=== PATIENT | male | born 1935 | race Caucasian/White ===

== ENCOUNTER 2017-06-25 08:52 | Outpatient (CLI) | payer MEDICARE ==
--- NOTE | 2017-06-25 09:40 | RAD ---
TWO VIEWS OF THE CHEST: 06/25/17 COMPARISON: 05/03/17 HISTORY: Dyspnea. FINDINGS: Two views of the chest shows a normal sized cardiomediastinal silhouette. The pacemaker is unchanged in position. The patient is status post sternotomy. There is no evidence consolidation, mass or ple ural effusion. IMPRESSION: Cardiomegaly without evidence of acute cardiopulmonary disease. POS: [facility]
== END 2017-06-25 08:53 | disposition home or self-care (01) ==
LOC: RAD 08:52
PROVIDERS: ATTEND Internal Medicine Critical Care Medicine
DX: R06.00 Dyspnea, unspecified (principal); I51.7 Cardiomegaly
CPT/HCPCS: 71020

== ENCOUNTER 2019-05-12 17:49 | Emergency (ER) | payer MEDICARE ==
[2019-05-12 18:45] LABS: #Eosinphils 0.1 thou/uL (0.0-0.7); #Lymphocytes 0.6 thou/uL (1.20-3.40); #Monocytes 0.5 thou/uL (0.11-0.59); #Neutrophils 7.1 thou/uL (1.40-6.50); %Eosinophils 0.7 % (0.0-10.0); %Lymphocytes 6.8 % (21.0-51.0); %Monocytes 6.6 % (0.0-10.0); Hemoglobin 16.5 g/dL (14.0-18.0); Mean Corpuscular HGB CONC 33.9 g/dL (32.0-36.0); Mean Corpuscular Hemoglobin 34.2 pg (27.0-31.0); Platelet Count 89 thou/uL (130-400); RBC Distribution Width 12.3 % (11.5-14.5); Red Blood Cell (RBC) Count 4.83 mill/uL (4.70-6.10); White Blood Cell (WBC) Count 8.3 thou/uL (4.8-10.8)
[2019-05-12 19:01] LABS: Platelet Morphology Comment Appears Decreased; RBC Morphology Normal
[2019-05-12 19:04] LABS: ALT (SGPT) 16 U/L (8-55); AST (SGOT) 15 U/L (5-34); Albumin 4.1 g/dL (3.4-4.8); Alkaline Phosphatase 74 U/L (40-150); Anion Gap 13 mmol/L (10-20); BUN (Urea Nitrogen) 33 mg/dL (8.4-25.7); Bilirubin, Total 0.7 mg/dL (0.2-1.2); Calc. Creatinine Clearance 0 mL/min (70-130); Calcium 9.2 mg/dL (7.8-10.44); Carbon Dioxide 32 mmol/L (23-31); Chloride 100 mmol/L (98-107); Estimated GFR-MDRD 50; Globulin 1.9 g/dL (2.4-3.5); Glucose 152 mg/dL (83-110); Potassium 3.7 mmol/L (3.5-5.1); Sodium 141 mmol/L (136-145)
--- NOTE | 2019-05-14 22:28 | EKG ---
Test Reason : Blood Pressure : / mmHG Vent. Rate : 107 BPM Atrial Rate : 107 BPM P-R Int : 000 ms QRS Dur : 160 ms QT Int : 382 ms P-R-T Axes : 000 259 037 degrees QTc Int : 509 ms Electronic ventricular pacemaker with frequent Premature ventricular complexes Confirmed by INA MARCUS, PB Parmar ([id number]), department editor AVELINA IYER ([id number]) on 05/14/2019 10:28:07 PM Referred By: Confirmed By:PB BUCKLEY MD
== END 2019-05-12 20:18 ==
LOC: ERS 17:49
DX: I49.3 Ventricular premature depolarization (principal); E11.9 Type 2 diabetes mellitus without complications; I25.10 Atherosclerotic heart disease of native coronary artery without angina pectoris; E78.5 Hyperlipidemia, unspecified; I10 Essential (primary) hypertension; J44.9 Chronic obstructive pulmonary disease, unspecified; I48.91 Unspecified atrial fibrillation; F32.9 Major depressive disorder, single episode, unspecified; F17.210 Nicotine dependence, cigarettes, uncomplicated; Z79.82 Long term (current) use of aspirin
CPT/HCPCS: 36415; 80053; 84484; 85025; 93005; 94760

== ENCOUNTER 2019-07-18 13:29 | Outpatient (CLI) | payer MEDICARE ==
[~2019-07-18 13:29] MED LIST: Sodium Chloride 0.9% 15 ML NEB ONE
--- NOTE | 2019-07-18 18:21 | HP ---
HISTORY OF PRESENT ILLNESS: Mr. Adam Baker is a very pleasant 83-year-old gentleman, who presents to the Wound Center for evaluation of an ulceration of the left medial lower leg. The patient states that the wound was first noted approximately 2 months ago. He states that he is unsure as to how the wound began. He states that he has been receiving dressing changes with the assistance of Home Health. The patient resides at [facility]. PAST MEDICAL HISTORY: 1. Coronary artery disease. 2. Hypertension. 3. COPD. 4. Benign prostatic hypertrophy. 5. Congestive heart failure. 6. Atrial fibrillation. 7. Chronic kidney disease, stage 3. 8. Anemia. PAST SURGICAL HISTORY: 1. Coronary artery bypass grafting. 2. Redo coronary artery bypass grafting. 3. TURP. 4. Right carotid endarterectomy. 5. Pacemaker placement. 6. AICD placement. MEDICATIONS: 1. Hydralazine. 2. Digoxin. 3. Prednisone. 4. DuoNeb. 5. Tylenol No. 3. 6. Symbicort. 7. MiraLAX. 8. Furosemide. 9. Coreg. 10. Protonix. 11. Imdur. 12. Aspirin. 13. Dextromethorphan. 14. Milk of magnesia. 15. Folic acid. 16. Senna. 17. Spiriva. 18. Atorvastatin. 19. Terazosin. 20. Vitamin D. 21. Multivitamin. ALLERGIES: PENICILLIN. SOCIAL HISTORY: Social history is significant for tobacco use of 1/2 of a pack of cigarettes per day for approximately 70 years. The patient admits to the consumption of two beers per day also for approximately 70 years. FAMILY HISTORY: Family history is negative for diabetes mellitus or coronary artery disease. PHYSICAL EXAMINATION: VITAL SIGNS: Temperature 97.9, pulse 70, respirations 18, and blood pressure 126/74. Accu-Chek 172. GENERAL: An 83-year-old gentleman sitting on wheelchair in examination room, in no acute distress. HEENT: Normocephalic and atraumatic. NECK: No nuchal rigidity. CHEST: Clear to auscultation. CV: Regular rate and rhythm. ABDOMEN: Soft. EXTREMITIES: An ulceration of the left medial lower leg is present, which measures approximately 1.0 x 2.1 cm. Granulation tissue is present within the wound margins. No purulent drainage is associated with the wound. No erythema of the skin surrounding the wound is present. No maceration of the skin of the periwound is noted. A dorsalis pedis pulse or posterior tibial pulse is not palpable on the left. No significant edema of the left foot or lower leg is present on exam today. ASSESSMENT AND PLAN: 1. Ulceration of left medial lower leg as described above. The ulceration appears to have developed over a hematoma of the left medial lower leg. The healing of the ulceration appears to be complicated by arterial insufficiency. The patient states that he has undergone a percutaneous revascularization of the left lower extremity with stent placement on the left. No antibiotics will be prescribed today based upon the appearance of the wound. I will see Mr. Baker again in 3 weeks. Orders will be transmitted to Home Health for dressing changes of iodoform packing followed by Mepilex Border 3 times per week after cleansing and irrigation. The patient understands and is in agreement with the preceding treatment plan. 2. Coronary artery disease. 3. Hypertension. 4. Chronic obstructive pulmonary disease. 5. Benign prostatic hypertrophy. 6. Congestive heart failure. 7. Atrial fibrillation. 8. Chronic kidney disease, stage 3. 9. Anemia. Job ID: [id number]
== END 2019-07-18 13:30 | disposition home or self-care (01) ==
LOC: WCC 13:29
PROVIDERS: ATTEND Family Medicine
DX: L97.929 Non-pressure chronic ulcer of unspecified part of left lower leg with unspecified severity (principal); I25.10 Atherosclerotic heart disease of native coronary artery without angina pectoris; N40.0 Benign prostatic hyperplasia without lower urinary tract symptoms; I48.91 Unspecified atrial fibrillation; I13.0 Hypertensive heart and chronic kidney disease with heart failure and stage 1 through stage 4 chronic kidney disease, or unspecified chronic kidney disease; I50.9 Heart failure, unspecified; N18.3 Chronic kidney disease, stage 3 (moderate); D64.9 Anemia, unspecified
CPT/HCPCS: 36416; A4218

== ENCOUNTER 2019-08-08 14:29 | Outpatient (CLI) | payer MEDICARE ==
--- NOTE | 2019-08-08 15:39 | PRG ---
DATE OF SERVICE: 08/08/2019 HISTORY: Mr. Adam Baker is a very pleasant 84-year-old gentleman, who presents to the Wound Center for evaluation of an ulceration of the left medial lower leg. The patient previously stated that the wound was first noted approximately 2 months prior to his initial presentation to the Wound Center. He stated that he was unsure as to how the wound began. The patient stated that he had been receiving dressing changes with the assistance of Home Health. The patient continues to reside at [facility]. PHYSICAL EXAMINATION: VITAL SIGNS: Temperature 98.2, pulse 75, respirations 19, and blood pressure 133/67. Accu-Chek 163. EXTREMITIES: An ulceration of the left medial lower leg is present, which measures approximately 2.1 x 1.2 cm. A new ulceration is present over the left lateral lower leg, which measures approximately 0.8 x 0.7 cm. Granulation tissue is present within the margins of each wound. No purulent drainage is associated with either wound. No erythema of the skin surrounding either wound is present. No maceration of the skin of the periwound of either wound is noted. A dorsalis pedis pulse or posterior tibial pulse is not palpable on the left. No significant edema of the left foot or lower leg is present on exam today. ASSESSMENT AND PLAN: 1. Ulcerations of left lower leg as described above. The healing of both ulcerations appears to be complicated by arterial insufficiency. The patient states that he has undergone percutaneous revascularization of the left lower extremity with stent placement on the left. Orders will be transmitted to Home Health for dressing changes of Aquacel Ag, followed by Mepilex Border three times per week after cleansing and irrigation. I will see Mr. Baker again in 1 week. 2. Coronary artery disease. 3. Hypertension. 4. Chronic obstructive pulmonary disease. 5. Benign prostatic hypertrophy. 6. Congestive heart failure. 7. Atrial fibrillation. 8. Chronic kidney disease, stage 3. 9. Anemia. Job ID: [id number]
[2019-08-08] MEDS ORDERED: Sodium Chloride 0.9% 15 ML NEB ONE (16:56)
== END 2019-08-08 14:30 | disposition home or self-care (01) ==
LOC: WCC 14:29
PROVIDERS: ATTEND Family Medicine
DX: L97.929 Non-pressure chronic ulcer of unspecified part of left lower leg with unspecified severity (principal); I25.10 Atherosclerotic heart disease of native coronary artery without angina pectoris; I13.10 Hypertensive heart and chronic kidney disease without heart failure, with stage 1 through stage 4 chronic kidney disease, or unspecified chronic kidney disease; J44.9 Chronic obstructive pulmonary disease, unspecified; N40.0 Benign prostatic hyperplasia without lower urinary tract symptoms; I50.9 Heart failure, unspecified; I48.91 Unspecified atrial fibrillation; N18.3 Chronic kidney disease, stage 3 (moderate); D63.1 Anemia in chronic kidney disease
CPT/HCPCS: 36416; A4218

== ENCOUNTER 2019-08-15 15:42 | Outpatient (CLI) | payer MEDICARE ==
--- NOTE | 2019-08-16 09:03 | PRG ---
DATE OF SERVICE: 08/15/2019 SUBJECTIVE: Mr. Adam Baker is a very pleasant 84-year-old gentleman, who presents to the wound center for evaluation of an ulceration of the left medial lower leg. The patient previously stated that the wound was first noted approximately 2 months prior to his initial presentation to the wound center. He stated that he was unsure as to how the wound began. The patient stated that he had been receiving dressing changes with the assistance of Home Health. The patient resides at [facility]. At the time of the patient's last visit, a new ulceration over the left lateral lower leg was noted. OBJECTIVE: VITAL SIGNS: Pulse 70, respirations 21, blood pressure 145/67. Accu-Chek 197. EXTREMITIES: An ulceration over the left medial lower leg is present which measures approximately 1.9 x 0.9 cm. The dimensions of the wound at the time of the patient's last visit were approximately 2.1 x 1.2 cm. An ulceration over the left lateral lower leg is present which measures approximately 0.5 x 0.6 cm. The dimensions of this ulceration at the time of the patient's last visit were approximately 0.8 x 0.7 cm. Granulation tissue is present within the margins of each wound. No purulent drainage is associated with either wound. No erythema of the skin surrounding either wound is present. No maceration of the skin of the periwound of either wound is noted. A dorsalis pedis pulse or posterior tibial pulse is not palpable on the left. No significant edema of the left foot or lower leg is appreciated on exam today. ASSESSMENT AND PLAN: 1. Ulcerations of left lower leg as described above. The healing of both ulcerations appears to be complicated by arterial insufficiency. The patient stated that he has undergone percutaneous revascularization of the left lower extremity with stent placement on the left. Arrangements will be made for a vascular evaluation. The patient states that he wishes to discuss referral for vascular evaluation with his engine test cell technician, Dr. Banks. Orders will be transmitted to Home Health for dressing changes of Aquacel Ag or Silvercel followed by Mepilex Border 3 times per week after cleansing and irrigation. I will see Mr. Baker again in 1 week. 2. Coronary artery disease. 3. Hypertension. 4. Chronic obstructive pulmonary disease. 5. Benign prostatic hypertrophy. 6. Congestive heart failure. 7. Atrial fibrillation. 8. Chronic kidney disease, stage 3. 9. Anemia. Job ID: [id number]
== END 2019-08-15 15:43 | disposition home or self-care (01) ==
LOC: WCC 15:42
PROVIDERS: ATTEND Family Medicine
DX: L97.929 Non-pressure chronic ulcer of unspecified part of left lower leg with unspecified severity (principal); I77.1 Stricture of artery; J44.9 Chronic obstructive pulmonary disease, unspecified; I25.10 Atherosclerotic heart disease of native coronary artery without angina pectoris; N40.0 Benign prostatic hyperplasia without lower urinary tract symptoms; I13.0 Hypertensive heart and chronic kidney disease with heart failure and stage 1 through stage 4 chronic kidney disease, or unspecified chronic kidney disease; I50.9 Heart failure, unspecified; N18.3 Chronic kidney disease, stage 3 (moderate); D63.1 Anemia in chronic kidney disease; I48.91 Unspecified atrial fibrillation
CPT/HCPCS: 36416

== ENCOUNTER 2019-08-22 13:52 | Outpatient (CLI) | payer MEDICARE ==
--- NOTE | 2019-08-22 15:57 | PRG ---
DATE OF SERVICE: 08/22/2019 HISTORY: Mr. Adam Baker is a very pleasant 84-year-old gentleman, who presents to the Wound Center for evaluation of an ulceration of the left medial lower leg. Previously, the patient stated that the wound was first noted approximately 2 months prior to his initial presentation to the Wound Center. The patient stated that he was unsure as to how the wound began. The patient stated that he had been receiving dressing changes with the assistance of Home Health. The patient resides at [facility] at the time of the patient's visit on 08/08/2019, a new ulceration over the left lateral lower leg was noted. PHYSICAL EXAMINATION: VITAL SIGNS: Temperature 97.6, pulse 70, respirations 20, blood pressure 184/85. Accu-Chek 97. EXTREMITIES: An ulceration over the left medial lower leg is present, which measures approximately 1.7 x 0.6 cm. The dimensions of the wound at the time of the patient's last visit were approximately 1.9 x 0.9 cm. An ulceration over the left lateral lower leg is present, which measures approximately 0.5 x 0.5 cm. The dimensions of the wound at the time of the patient's last visit were approximately 0.5 x 0.6 cm. Granulation tissue was present within the margins of each wound. No purulent drainage is associated with either wound. No erythema of the skin surrounding either wound is present. No maceration of the skin of the periwound of either wound is noted. No significant edema of the left foot or lower leg is appreciated on exam today. ASSESSMENT AND PLAN: 1. Ulcerations of left lower leg as described above. The healing of both ulcerations appear to be complicated by arterial insufficiency. The patient stated that he has undergone percutaneous revascularization of the left lower extremity with stent placement on the left. Arrangements will be made for a vascular evaluation. The patient stated that he wished to discuss referral for vascular evaluation with his dental assistant, Dr. Banks. The patient was recently seen by Dr. Banks. According to the patient, Mr. Baker has an appointment for an ultrasound at [facility]. The patient's nurse at [facility] has been contacted to ensure that the patient keeps his appointment at [facility]. Orders will be transmitted to Home Health for dressing changes of Aquacel Ag or Silvercel followed by Mepilex Border 3 times per week after cleansing and irrigation. I have asked the patient to schedule a followup appointment in the Wound Center after evaluation and any necessary treatment for arterial insufficiency at [facility] is complete. The patient understands and is in agreement with the preceding treatment plan. 2. Coronary artery disease. 3. Hypertension. 4. Chronic obstructive pulmonary disease. 5. Benign prostatic hypertrophy. 6. Congestive heart failure. 7. Atrial fibrillation. 8. Chronic kidney disease stage 3. 9. Anemia. Job ID: [id number]
[2019-08-22] MEDS ORDERED: Sodium Chloride 0.9% 15 ML NEB ONE (16:33)
== END 2019-08-22 13:53 | disposition home or self-care (01) ==
LOC: WCC 13:52
PROVIDERS: ATTEND Family Medicine
DX: L97.929 Non-pressure chronic ulcer of unspecified part of left lower leg with unspecified severity (principal); I13.0 Hypertensive heart and chronic kidney disease with heart failure and stage 1 through stage 4 chronic kidney disease, or unspecified chronic kidney disease; N18.3 Chronic kidney disease, stage 3 (moderate); N40.0 Benign prostatic hyperplasia without lower urinary tract symptoms; J44.9 Chronic obstructive pulmonary disease, unspecified; D63.1 Anemia in chronic kidney disease; I50.9 Heart failure, unspecified; I48.91 Unspecified atrial fibrillation; I25.10 Atherosclerotic heart disease of native coronary artery without angina pectoris
CPT/HCPCS: A4218

== ENCOUNTER 2019-08-24 14:38 | Outpatient (CLI) | payer MEDICARE ==
--- NOTE | 2019-08-24 16:13 | ULT ---
US Arterial Doppler Lower Ext History: Peripheral vascular disease Comparison: None. Findings: Real-time grayscale, color, and spectral analysis of the bilateral lower extremity arterial system was performed. Monophasic waveforms throughout the lower extremities bilaterally. Severe atherosclerotic plaque thro ughout both lower extremities. There is complete occlusion of the mid right femoral artery as well as the mid and distal left femoral artery. Trickle of flow to the feet bilaterally with spectral broa dening and parvis tardis waveforms of the trifurcations. 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 Conventional angiogram and possible intervention recommended.
== END 2019-08-24 14:39 | disposition home or self-care (01) ==
LOC: ULT 14:38
PROVIDERS: ATTEND Internal Medicine Cardiovascular Disease
DX: I50.22 Chronic systolic (congestive) heart failure (principal); I73.9 Peripheral vascular disease, unspecified; I77.89 Other specified disorders of arteries and arterioles
CPT/HCPCS: 93923

== ENCOUNTER 2019-09-07 18:31 | Inpatient (IN) | payer MEDICARE, SELFPAY ==
[2019-09-07] MEDS ORDERED: Clindamycin/D5W 900 mg/50 ml Premix Bag ONE (18:50)
[2019-09-07 19:20] LABS: #Basophils 0.1 thou/uL (0.0-0.2); #Lymphocytes 0.3 thou/uL (1.20-3.40); #Monocytes 0.7 thou/uL (0.11-0.59); #Neutrophils 15.3 thou/uL (1.40-6.50); %Basophils 0.7 % (0.0-1.0); %Eosinophils 0.1 % (0.0-10.0); %Lymphocytes 1.8 % (21.0-51.0); %Monocytes 4.4 % (0.0-10.0); %Neutrophils 92.9 % (42.0-75.0); Hemoglobin 16.3 g/dL (14.0-18.0); Mean Corpuscular HGB CONC 33.1 g/dL (32.0-36.0); Mean Corpuscular Hemoglobin 33.5 pg (27.0-31.0); Mean Platelet Volume 8.2 fL (7.4-10.4); Platelet Count 78 thou/uL (130-400); RBC Distribution Width 12.5 % (11.5-14.5); Red Blood Cell (RBC) Count 4.88 mill/uL (4.70-6.10); White Blood Cell (WBC) Count 16.5 thou/uL (4.8-10.8)
[2019-09-07] MEDS ORDERED: HYDROcodone/Acetaminophen 10/325 mg Tablet ONE (19:33)
[2019-09-07] MEDS ORDERED: Acetaminophen 500 MG TAB ONE (19:33)
[2019-09-07 19:36] LABS: ALT (SGPT) 22 U/L (8-55); AST (SGOT) 34 U/L (5-34); Albumin 3.8 g/dL (3.4-4.8); Alkaline Phosphatase 72 U/L (40-110); Anion Gap 15 mmol/L (10-20); BUN (Urea Nitrogen) 34 mg/dL (8.4-25.7); Bilirubin, Total 1.6 mg/dL (0.2-1.2); Calc. Creatinine Clearance 0 mL/min (70-130); Calcium 9.3 mg/dL (7.8-10.44); Carbon Dioxide 32 mmol/L (23-31); Chloride 96 mmol/L (98-107); Estimated GFR-MDRD 45; Globulin 2.6 g/dL (2.4-3.5); Glucose 113 mg/dL (83-110); Potassium 3.8 mmol/L (3.5-5.1); Protein, Total 6.4 g/dL (5.8-8.1); Sodium 139 mmol/L (136-145)
--- NOTE | 2019-09-07 19:36 | PDOC.HHP ---
Hospitalist HPI - History of Present Illness R leg swelling/redness History of Present Illness: 84 year old male with DM2, atrial fibrillation, pacemaker, [id number], benign prostatic hypertrophy, hyperlipidemia, hypertension, COPD who presents to ED for RLE swelling and erythema, began a week ago, normally treated by home health , normally LLE is leg with ulcers but 1 week ago developed RLE ulcer and erythema/edema, no fever/chills, patient is a resident of [facility]. Per ED report blood pressure initially with EMS was 90 systolic, improved to 142 then 160s. In ED, blood cultures drawn, recieved 500cc NS, US duplex venous ordered, lactic acid 1.4, WBC 16, patient received clindamycin, [facility] hospitalist consulted for admission I discussed with Dr Reyes. Noted history of PCN allergy and sacral decubitus ulcer. Patient chair bound x 2 years per niece at bedside, "passes out" if walks more than 3-4 feet she says, has chronic hypoxia on 2L by nasal canula, no SOB, has chronic orthopnea, sees Dr Banks and has pacemaker with recent battery change. Hospitalist ROS - Review of Systems Constitutional: denies: fever, chills, sweats, weakness, malaise, other Eyes: denies: pain, vision change, conjunctivae inflammation, eyelid inflammation, redness, other ENT: denies: ear pain, ear discharge, nose pain, nose discharge, nose congestion , mouth pain, mouth swelling, throat pain, throat swelling, other Respiratory: denies: cough, dry, shortness of breath, hemoptysis, SOB with excertion, pleuritic pain, sputum, wheezing, other Cardiovascular: denies: chest pain, palpitations, orthopnea, paroxysmal noc. dyspnea, edema, light headedness, other Gastrointestinal: denies: nausea, vomiting, abdominal pain, diarrhea, constipation, melena, hematochezia, other Genitourinary: denies: dysuria, frequency, incontinence, hematuria, retention, other Musculoskeletal: denies: neck pain, shoulder pain, arm pain, back pain, hand pain, leg pain, foot pain, other Skin: denies: rash, lesions, joyce, bruising, other Neurological: denies: weakness, numbness, incoordination, change in speech, confusion, seizures, other Hospitalist History - Past Medical History Other Medical History: DM TYPE 2, cardiac history, Treated with a pacemaker, Past medical history includes cardiac history, coronary artery disease, Past medical history includes genitourinary history, benign prostatic hypertrophy, Past medical history includes history of hyperlipidemia, Past medical history includes history of hypertension, Past medical history includes pulmonary disease, chronic obstructive pulmonary disease. AFIB. - Past Surgical History Other Surgical History: CAROTID THROMBOENDARTERECTOMY, Surgical history of coronary artery bypass graft surgery X 2, four vessels, Surgical history of prostatectomy, PM. - Family History Family History: reports: no pertinent history - Social History Other Social History: Lives, Lives at [facility] living at [facility], Patient currently uses tobacco, Patient smokes cigarettes, Tobacco history notes: 0.5 PACK PER DAY, Patient drinks every day, less than 5 drinks per day, Patient denies drug use. - Exam General Appearance: NAD, awake alert Eye: PERRL, anicteric sclera ENT: normocephalic atraumatic, no oropharyngeal lesions, moist mucosa Neck: supple, symmetric, no JVD, no thyromegaly, no lymphadenopathy, no carotid bruit Heart: RRR, no murmur, no gallops, no rubs, normal peripheral pulses Respiratory: CTAB, no wheezes, no rales, no ronchi, normal chest expansion, no tachypnea, normal percussion Gastrointestinal: soft, non-tender, non-distended, normal bowel sounds, no palpable masses, no hepatomegaly, no splenomegaly, no bruit Extremities: no cyanosis, no clubbing, 2+ LE edema Skin - other findings: R lower extremity edema to patten, sacral stage 1-2 ulcer ~ 2cm, pannus yeast Neurological: cranial nerve grossly intact, normal sensation to touch, no weakness, no focal deficits, no new deficit Musculoskeletal: normal tone, normal strength, no muscle wasting Psychiatric: normal affect, normal behavior, A&O x 3 Hospitalist Results - Labs Result Diagrams: 09/07/19 18:44 09/07/19 18:44 Lab results: WBC 16.5 thou/uL (4.8-10.8) H 09/07/19 18:44 Hgb 16.3 g/dL (14.0-18.0) 09/07/19 18:44 Hct 49.4 % (42.0-52.0) 09/07/19 18:44 MCV 101.0 fL (78.0-98.0) H 09/07/19 18:44 Plt Count 78 thou/uL (130-400) L 09/07/19 18:44 Neutrophils % 92.9 % (42.0-75.0) H 09/07/19 18:44 Lactic Acid 1.4 mmol/L (0.5-2.2) 09/07/19 18:44 reviewed, WBC 16 Additional comment: BP: 164/71 Pulse: 71 Resp: 20 Temp: 99.1 (Oral) Pain: 0 O2 sat: 95 on (Room Air) Time: 09/07/2019 18:36. Hospitalist H&P A/P - Plan Plan: 84 year old male with DM2, atrial fibrillation, pacemaker, NLXCb1m, benign prostatic hypertrophy, hyperlipidemia, hypertension, COPD who presents to ED for RLE swelling and erythema. # RLE cellulitis - admit to med/surg - continue clindamycin - follow blood cultures # sepsis secondary to cellulitis - WBC and low BP per EMS report, now normalized , lactic acid normal - treatment as above # chronic hypoxic respiratory failure - on 2L at home and 2L here, will order echo and consult cardiology for optimization and continue COPD medications # type 2 DM - mild sliding scale ordered ACHS # history of atrial fibrillation and pacemaker - consult cardiology # sacral decubitus ulcer - consult wound care service for inpatient assistance # candidal infection of pannus - prescribe nystatin # thrombocytopenia - platelets 78 # sacral decubitus - likely secondary to immobility, wound care nurse consult # elevated bilirubin - 1.6 in ED, appears to have fluctuating baseline but always <2.0, repeat LFT in AM, do not suspect acute GI issues # CKD III - Cr 1.5 in ED, baseline appears 1.5-2.0, trend daily # CAD with h/o CABG - noted, continue home meds once med rec complete # BPH with h/o prostatectomy - noted, continue home meds once med rec complete # debility - basically lives in a recliner, "passes out" if walks more than a few steps, will request cardiology evaluation given orthopnea and cardiac history and will request Pt/OT and case management evaluation # disposition - SNF/rehab vs return to assisted living
[2019-09-07] MEDS ORDERED: Ondansetron PF 4 MG/2 ML Vial IVP PRN (20:31)
[2019-09-07] MEDS ORDERED: Promethazine HCl 12.5 MG in Sodium Chloride 0.9% 50 ML IVPB PRN (20:31)
[2019-09-07] MEDS ORDERED: Morphine 2 MG/ML SYRINGE SLOW IVP PRN (20:31)
[2019-09-07] MEDS ORDERED: Bisacodyl 5 MG TAB PO PRN (20:32)
[2019-09-07] MEDS ORDERED: Bisacodyl 10 MG SUPP PR PRN (20:32)
[2019-09-07] MEDS ORDERED: HYDROcodone/Acetaminophen 5/325 mg Tablet PO PRN (20:32)
[2019-09-07] MEDS ORDERED: Acetaminophen 325 MG TAB PO PRN (20:32)
[2019-09-07] MEDS ORDERED: Dextrose 50% Abboject 50 ML SYRINGE SLOW IVP PRN (20:34)
[2019-09-07] MEDS ORDERED: Dextrose 5% in Water 1,000 ML IV PRN (20:34)
--- NOTE | 2019-09-07 21:50 | ULT ---
EXAM: Bilateral lower extremity venous Doppler PROVIDED CLINICAL HISTORY: Bilateral lower extremity edema FINDINGS: Grayscale and color Doppler sonography with spectral analysis was performed of the common femoral, fe moral, popliteal, posterior tibial, greater saphenous and profunda femoral veins bilaterally. The evaluated venous structures demonstrate a normal sonographic appearance. IMPRESSION: No sonographic evidence for lower extremity deep venous thrombosis.
[2019-09-07] MEDS: Heparin 5,000 UNITS/ML VIAL SC SCH (22:18)
[2019-09-07] MEDS: Senokot S 8.6-50 MG TAB PO SCH (22:20)
[2019-09-07] MEDS: Nystatin Powder 15 GM BOT TOP SCH (22:31)
[2019-09-07 22:58] VITALS: BMI 23.8
[2019-09-08] MEDS: Clindamycin/D5W 600 MG in Premix Bag 1 BAG IVPB SCH ×3 (05:39→21:25)
[2019-09-08 06:18] LABS: #Lymphocytes 0.5 thou/uL (1.20-3.40); #Monocytes 0.7 thou/uL (0.11-0.59); #Neutrophils 10.2 thou/uL (1.40-6.50); %Eosinophils 0.3 % (0.0-10.0); %Monocytes 6.3 % (0.0-10.0); %Neutrophils 89.4 % (42.0-75.0); Hemoglobin 15.6 g/dL (14.0-18.0); Mean Corpuscular HGB CONC 31.9 g/dL (32.0-36.0); Mean Corpuscular Hemoglobin 32.6 pg (27.0-31.0); Mean Platelet Volume 8.3 fL (7.4-10.4); Platelet Count 70 thou/uL (130-400); RBC Distribution Width 12.5 % (11.5-14.5); Red Blood Cell (RBC) Count 4.79 mill/uL (4.70-6.10); White Blood Cell (WBC) Count 11.5 thou/uL (4.8-10.8)
[2019-09-08] MEDS ORDERED: Mometasone/Formoterol 120 PUFF INHALER INH SCH ×2 (06:30→09:30)
[2019-09-08 06:44] LABS: Anion Gap 15 mmol/L (10-20); BUN (Urea Nitrogen) 35 mg/dL (8.4-25.7); Calc. Creatinine Clearance 41 mL/min (70-130); Calcium 8.6 mg/dL (7.8-10.44); Carbon Dioxide 26 mmol/L (23-31); Chloride 101 mmol/L (98-107); Estimated GFR-MDRD 48; Glucose 109 mg/dL (83-110); Magnesium 2.3 mg/dL (1.6-2.6); Potassium 3.3 mmol/L (3.5-5.1); Sodium 139 mmol/L (136-145)
[2019-09-08] MEDS: Budesonide 0.25 MG/2 ML NEB INH SCH ×2 (06:50→19:00)
[2019-09-08] MEDS: predniSONE 5 MG TAB PO SCH (07:48)
[2019-09-08] MEDS: Heparin 5,000 UNITS/ML VIAL SC SCH ×3 (07:48→22:52)
[2019-09-08] MEDS: Senokot S 8.6-50 MG TAB PO SCH ×2 (07:49→21:25)
[2019-09-08] MEDS: Nystatin Powder 15 GM BOT TOP SCH ×2 (07:49→21:27)
[2019-09-08] MEDS ORDERED: Potassium Chloride 20 MEQ TAB PO SCH (08:15)
[2019-09-08] MEDS ORDERED: Aspirin 81 mg Enteric Coated Tablet PO SCH (09:00)
--- NOTE | 2019-09-08 09:13 | PDOC.HOSPP ---
- Subjective Subjective: Doing ok. Says the redness in his leg has been present for a month. When asked what changed that he decided to come here he said the NEUROLOGY HOSPITALIST at the [place] decided that. He does report that he has had increased pain during that time. He says his breathing is not good, but is at his baseline. He does continue to smoke at least a 1/2 PPD. He is willing to have a low dose nicotine patch. - Objective Vital Signs & Weight: Vital Signs (12 hours) Temp Pulse Resp BP Pulse Ox 09/08/19 08:00 100 09/08/19 07:46 98.4 F 71 16 147/82 H 100 09/08/19 06:50 68 16 100 09/08/19 04:11 100 09/08/19 04:07 69 19 100 09/08/19 03:09 97.9 F 70 18 148/80 H 99 09/07/19 23:41 98.1 F 75 16 145/80 H 98 Weight Weight 161 lb I&O: 09/07/19 09/08/19 09/09/19 06:59 06:59 06:59 Intake Total 290 Output Total 200 Balance 90 Result Diagrams: 09/08/19 05:51 09/08/19 05:51 Additional Labs: Accuchecks 09/08/19 09/07/19 05:51 23:33 POC Glucose 108 109 Hospitalist ROS - Medication Medications: Active Medications Generic Name Dose Route Start Last Admin Trade Name Freq PRN Reason Stop Dose Admin Albuterol/Ipratropium 3 ml 09/07/19 20:44 09/08/19 04:07 Duoneb NEB 3 ml Q6H PRN Administration SOB &/or Wheezing Aspirin 81 mg 09/08/19 09:00 09/08/19 07:48 Ecotrin PO 81 mg DAILY [place] Administration Budesonide 0.25 mg 09/08/19 06:30 09/08/19 06:50 Pulmicort Neb Solution INH 0.25 mg BID-RT [place] Administration Heparin Sodium (Porcine) 5,000 units 09/07/19 21:00 09/08/19 07:48 Heparin SC 5,000 units TID [place] Administration Clindamycin Phosphate/Dextrose 50 mls @ 100 mls/hr 09/08/19 06:00 09/08/19 05 :39 600 mg/ Device IVPB 50 mls Q8HR [place] Administration Mometasone Furoate/Formoterol Fumar 1 puff 09/08/19 06:30 09/08/19 06:52 Dulera 200 Mcg/5 Mcg Inhaler INH 1 puff BID-RT [place] Administration Nystatin 1 gm 09/07/19 21:00 09/08/19 07:49 Mycostatin Powder TOP 1 gm BID [place] Administration Pantoprazole Sodium 40 mg 09/08/19 09:00 09/08/19 07:48 Protonix PO 40 mg DAILY [place] Administration Prednisone 10 mg 09/08/19 08:00 09/08/19 07:48 Prednisone PO 10 mg QAM-WM [place] Administration Senna/Docusate Sodium 1 tab 09/07/19 21:00 09/08/19 07:49 Senokot S PO 1 tab BID [place] Administration - Exam General Appearance: NAD, awake alert ENT - other findings: Nasal canula oxygen. Heart: RRR, no murmur Respiratory: rales (mild, scattered.) Respiratory - other findings: Diminished. Gastrointestinal: soft, non-tender, non-distended, normal bowel sounds, no palpable masses, no hepatomegaly, no splenomegaly, no bruit Extremities - other findings: Right calf erythema, TTP. Superficially denuded areas (see WCT pics) Musculoskeletal: generalized weakness Psychiatric: normal affect, normal behavior, A&O x 3 Hosp A/P (1) Cellulitis of right leg Code(s): L03.115 - CELLULITIS OF RIGHT LOWER LIMB Status: Acute (2) Atrial fibrillation Code(s): I48.91 - UNSPECIFIED ATRIAL FIBRILLATION Status: Chronic Qualifiers: Atrial fibrillation type: persistent (3) BPH (benign prostatic hyperplasia) Code(s): N40.0 - BENIGN PROSTATIC HYPERPLASIA WITHOUT LOWER URINRY TRACT SYMP Status: Chronic (4) CAD (coronary artery disease) Code(s): I25.10 - ATHSCL HEART DISEASE OF [place] CORONARY ARTERY W/O ANG PCTRS Status: Chronic (5) CKD (chronic kidney disease), stage III Status: Chronic (6) COPD (chronic obstructive pulmonary disease) Status: Chronic (7) Physical deconditioning Code(s): R53.81 - OTHER [place] Status: Chronic (8) PVD (peripheral vascular disease) Code(s): I73.9 - PERIPHERAL VASCULAR DISEASE, UNSPECIFIED Status: Acute (9) Open wound of right lower leg Code(s): S81.801A - UNSPECIFIED OPEN WOUND, RIGHT LOWER LEG, INITIAL ENCOUNTER Status: Acute - Plan Doing ok. Feels like his breathing is at baseline, but needs his usual daily meds. Resume home meds. Continue IV clinda for cellulitis. Will likely need to convert to po Keflex when improving. Continue WCT for topical wound care. Nicotine patch.
[2019-09-08] MEDS ORDERED: PROVENTIL INHALER 6.7 G (200 INHALATIONS) INH PRN (09:15)
[2019-09-08] MEDS ORDERED: Finasteride 5 MG TAB PO SCH (09:30)
[2019-09-08] MEDS ORDERED: Carvedilol 6.25 MG TAB PO SCH (09:30)
[2019-09-08] MEDS ORDERED: hydrALAZINE 25 MG TAB PO SCH (09:30)
[2019-09-08] MEDS ORDERED: Budesonide 0.25 MG/2 ML NEB INH SCH (09:30)
[2019-09-08] MEDS ORDERED: Furosemide 20 MG TAB PO SCH (09:30)
[2019-09-08] MEDS ORDERED: Ipratropium Bromide 2.5 ml Neb NEB PRN (09:42)
[2019-09-08] MEDS: Nicotine 7 MG PATCH TD SCH (10:31)
[2019-09-08] MEDS: hydrALAZINE 25 MG TAB PO SCH ×2 (15:46→21:26)
[2019-09-08] MEDS: Aspirin 81 mg Enteric Coated Tablet PO SCH (15:47)
[2019-09-08] MEDS: Carvedilol 6.25 MG TAB PO SCH (17:13)
[2019-09-08] MEDS ORDERED: Communication Order-Pharmacy FS SCH (18:15)
[2019-09-08] MEDS: Mometasone/Formoterol 120 PUFF INHALER INH SCH (19:01)
--- NOTE | 2019-09-08 19:14 | CON ---
DATE OF CONSULTATION: 09/08/2019 PRIMARY CREATIVE TECHNOLOGIST: Kevin Banks MD REASON FOR CONSULTATION: Peripheral vascular disease and nonhealing ulcers. HISTORY OF PRESENT ILLNESS: Mr. Baker is a very pleasant 84-year-old white gentleman, who comes to the hospital for lower extremity pain and nonhealing ulcers. He was evaluated by Dr. Banks as an outpatient and was having nonhealing ulcers and claudication. An arterial ultrasound of the lower extremities was performed that showed severe bilateral PVD, likely occluded superficial femoral arteries. He was scheduled to see either Dr. Matias or myself for consideration of an AFRO. He has not seen us for this, but he is in the hospital now for the same reason. Currently, he denies any chest pain, tightness, pressure, or shortness of breath and is chronic from with an ischemic cardiomyopathy and severely reduced EF. He otherwise denies any other issues. PAST MEDICAL HISTORY: 1. Type 2 diabetes. 2. Coronary artery disease. 3. BPH. 4. Hyperlipidemia. 5. Hypertension. 6. COPD. 7. History of atrial fibrillation. 8. Ischemic cardiomyopathy with severely reduced EF. 9. Peripheral vascular disease. SURGICAL HISTORY: 1. Carotid endarterectomy. 2. Coronary artery bypass grafting x2. 3. Prostatectomy. 4. Pacemaker placement/AICD. FAMILY HISTORY: Noncontributory. SOCIAL HISTORY: [facility] resident. Continues to use tobacco about half pack a day. Drinks daily. No drug use. REVIEW OF SYSTEMS: A 12-point review of systems was done and was all negative unless stated in the history of present illness. PHYSICAL EXAMINATION: VITAL SIGNS: Temperature 98.5, pulse 71, respiratory rate 16, saturating 100% on room air, blood pressure 173/87. GENERAL: Awake, alert, oriented x3, in no distress. HEENT: Normocephalic, atraumatic. NECK: Supple. LUNGS: Clear. Lungs have reduced breath sounds bilaterally. CARDIOVASCULAR: S1 and S2. No S3 or S4. No murmurs. There is a grade 3/6 systolic murmur at the right upper sternal border and second holosystolic murmur at the apex, 3/6. ABDOMEN: Soft. Positive bowel sounds. EXTREMITIES: Right lower extremity is wrapped with cellulitis and one ulcer. Left lower extremity has several ulcers that are painful and nonhealing. LABORATORY DATA: Laboratory work was reviewed. White count of 16, down to 11; hemoglobin of 16, down to 15; hematocrit 48; and platelet count of 70. Chemistry with a BUN of 35, creatinine 1.42, which is close to his baseline GFR 48, potassium was 3.3. BNP was 366. DIAGNOSTIC STUDIES: Lower extremity venous ultrasound was unremarkable. No DVTs. ASSESSMENT: 1. Nonhealing ulcers. 2. Peripheral vascular disease and claudication. 3. Severely reduced left ventricular systolic function with most recent echocardiogram in 2017 with an ejection fraction of 30% to 35%. 4. Ischemic cardiomyopathy. 5. Status post coronary artery bypass graft. 6. Lower extremity cellulitis. PLAN: 1. We will plan on doing AFRO. We spoke over the risks and benefits of the procedure and he agrees to proceed. We will plan on doing this tomorrow. He is able to lay flat at this time. He is pretty much at his normal euvolemic state. 2. We will plan on doing a right leg access for possible left leg intervention. He states the left leg is the one is giving him most problem. My expectation is that he will have severe disease and he will require some sort of surgical intervention to try to open up his arteries. However, we will find out tomorrow with angiography. 3. If stents were to be used bare metal stent and peripheral stents will be used because of his low platelet count. 4. Disposition: N.p.o. post midnight. 5. AFRO to be done tomorrow. 6. Very gentle hydration overnight. 7. Further recommendations per results of peripheral angiography. Thank you for letting us participate in the care of your patient. We will follow. Job ID: [id number]
[2019-09-08] MEDS: Terazosin HCl 1 MG CAP PO SCH (21:25)
[2019-09-08] MEDS: Furosemide 40 MG TAB PO SCH (21:26)
[2019-09-09] MEDS ORDERED: Sodium Chloride 0.9% 250 ML IV SCH ×2 (00:01→11:15)
[2019-09-09] MEDS: hydrALAZINE 20 MG/ML VIAL SLOW IVP PRN (00:11)
[2019-09-09 05:33] LABS: #Eosinphils 0.1 thou/uL (0.0-0.7); #Lymphocytes 0.5 thou/uL (1.20-3.40); #Monocytes 0.5 thou/uL (0.11-0.59); #Neutrophils 6.5 thou/uL (1.40-6.50); %Basophils 0.3 % (0.0-1.0); %Eosinophils 0.8 % (0.0-10.0); %Lymphocytes 6.3 % (21.0-51.0); %Monocytes 6.3 % (0.0-10.0); %Neutrophils 86.3 % (42.0-75.0); Hemoglobin 15.9 g/dL (14.0-18.0); Mean Corpuscular HGB CONC 32.7 g/dL (32.0-36.0); Mean Corpuscular Hemoglobin 33.1 pg (27.0-31.0); Mean Platelet Volume 8.3 fL (7.4-10.4); Platelet Count 89 thou/uL (130-400); RBC Distribution Width 12.4 % (11.5-14.5); Red Blood Cell (RBC) Count 4.81 mill/uL (4.70-6.10); White Blood Cell (WBC) Count 7.5 thou/uL (4.8-10.8)
[2019-09-09 05:50] LABS: Anion Gap 13 mmol/L (10-20); BUN (Urea Nitrogen) 32 mg/dL (8.4-25.7); Calc. Creatinine Clearance 46 mL/min (70-130); Calcium 8.9 mg/dL (7.8-10.44); Carbon Dioxide 31 mmol/L (23-31); Chloride 104 mmol/L (98-107); Estimated GFR-MDRD 53; Glucose 112 mg/dL (83-110); Magnesium 2.4 mg/dL (1.6-2.6); Potassium 3.4 mmol/L (3.5-5.1); Sodium 145 mmol/L (136-145)
[2019-09-09] MEDS: Clindamycin/D5W 600 MG in Premix Bag 1 BAG IVPB SCH ×3 (06:20→21:02)
[2019-09-09] MEDS: Budesonide 0.25 MG/2 ML NEB INH SCH ×2 (07:19→19:24)
[2019-09-09] MEDS: Mometasone/Formoterol 120 PUFF INHALER INH SCH ×2 (07:33→19:27)
[2019-09-09] MEDS: Cholecalciferol (Vitamin D3) 400 UNITS TAB PO SCH (08:32)
[2019-09-09] MEDS: hydrALAZINE 25 MG TAB PO SCH ×3 (08:32→20:02)
[2019-09-09] MEDS: predniSONE 5 MG TAB PO SCH (08:32)
[2019-09-09] MEDS: Isosorbide Mononitrate (ER) 30 MG TAB PO SCH (08:32)
[2019-09-09] MEDS: Digoxin 0.125 MG TAB PO SCH (08:33)
[2019-09-09] MEDS: Senokot S 8.6-50 MG TAB PO SCH ×2 (08:36→20:02)
[2019-09-09] MEDS: Finasteride 5 MG TAB PO SCH (08:36)
[2019-09-09] MEDS: Furosemide 40 MG TAB PO SCH ×2 (08:36→20:02)
[2019-09-09] MEDS: Atorvastatin Calcium 40 MG TAB PO SCH (08:36)
[2019-09-09] MEDS: Multivit, Therapeutic 1 TAB PO SCH (08:36)
[2019-09-09] MEDS: Folic Acid 1 MG TAB PO SCH (08:36)
[2019-09-09] MEDS: Carvedilol 6.25 MG TAB PO SCH ×2 (08:36→17:02)
[2019-09-09] MEDS: Nystatin Powder 15 GM BOT TOP SCH ×2 (08:40→20:07)
[2019-09-09] MEDS: Heparin 5,000 UNITS/ML VIAL SC SCH ×3 (08:40→20:02)
[2019-09-09] MEDS: Senokot 8.6 MG TAB PO SCH (08:41)
[2019-09-09] MEDS ORDERED: Digoxin 0.125 MG TAB PO SCH (09:00)
[2019-09-09] MEDS ORDERED: Heparin (Artline) 500 ML ONE ×2 (09:40)
[2019-09-09] MEDS ORDERED: Iopamidol 370 76% 100 ML VIAL ONE (09:57)
[2019-09-09] MEDS ORDERED: Midazolam HCl 2 mg/2 ml Vial ONE (10:34)
[2019-09-09] MEDS ORDERED: Fentanyl 100 MCG/2 ML VIAL ONE (10:34)
[2019-09-09] MEDS ORDERED: Acetaminophen/Codeine 30-300mg Tablet PO PRN (11:13)
[2019-09-09] MEDS ORDERED: Heparin 10,000 UNITS/1 ML VIAL ONE (11:19)
--- NOTE | 2019-09-09 13:35 | CON ---
DATE OF CONSULTATION: HISTORY OF PRESENT ILLNESS: This is an 84-year-old gentleman with known history of peripheral vascular disease, who was admitted from [facility] due to nonhealing wounds. He was seen by Dr. Banks, referred to Dr. Mo for angiography. I had seen him about a seven and then four years ago for peripheral vascular disease. However, at that time, the patient was nonambulatory, living in a long-term and did not have any active ulcers on his legs. Unfortunately, he has continued to smoke and has had progression of disease such that he has some open wounds on his left leg as well as a new cellulitis on his right leg that prompted admission. I have reviewed his angiograms from today as well as a CT scan from about 8 years ago. The patient has diffuse iliac artery disease on the right, although I was told there was no significant pressure gradients. The left common iliac distally including the proximal external iliac artery appears to have a high-grade lesion and then he has severe disease in both common femoral arteries and profunda femoral arteries. Superficial femoral arteries are essentially occluded in multiple areas with previous stenting of these vessels and then small vessel disease but runoff below the knee is present angiographically. His CAT scan from about 8 years ago demonstrates heavily calcified vessels at the level of the groin and proximally. PAST MEDICAL HISTORY: Otherwise includes hypertension, dyslipidemia. PAST SURGICAL HISTORY: Coronary bypass grafting in 1987 with repeat grafting in 1997. He has also had a previous carotid endarterectomy. He has bladder tumors of history. PHYSICAL EXAMINATION: GENERAL: On examination, he is an alert, cooperative, elderly gentleman, in no distress. NECK: No right carotid bruit. LUNGS: Clear to auscultation. CARDIAC: Regular rate and rhythm. No murmurs with a pacemaker in the left upper chest. ABDOMEN: Soft and nontender. EXTREMITIES: I do not appreciate a left femoral pulse and he has a dressing on the right groin related to a puncture today. He has no palpable distal pulses and his Doppler signals are monophasic or high pitched in both DP and PT bilaterally. He has marked erythema over the right lower leg and then on the left leg he has a dressing over wounds both anteriorly on the patten and then laterally. Surgical options would be a left common femoral endarterectomy with intraoperative stenting of his left proximal external iliac artery. However, based on his CT scan findings, I do not think that his vessels can be handled with clamps and therefore I think that surgical intervention as far as attempting common femoral endarterectomy would be fraught with problems. He is nonambulatory and at this time, I think that attempts at intervention to improve his circulation would be unlikely to be successful. He has multiple other medical problems including an ejection fraction of 20%, diabetes mellitus, dyslipidemia, COPD, which has prompted admission in the recent past. At this time, I think the best options will be amputation of his legs if that becomes necessary. At this time, the ulcerations on the left leg are being managed locally without any issues and he does not have any significant pain. His right leg appears to have cellulitis and if this resolves, then I think outpatient care can continue for his left leg wounds. Job ID: [id number]
--- NOTE | 2019-09-09 16:02 | PDOC.HOSPP ---
- Subjective Subjective: Doing ok. Tolerated the procedure. - Objective Vital Signs & Weight: Vital Signs (12 hours) Temp Pulse Resp BP BP Pulse Ox 09/09/19 08:37 70 09/09/19 08:36 157/70 H 09/09/19 08:33 70 09/09/19 08:32 70 157/70 H 09/09/19 08:00 96 09/09/19 07:33 96 09/09/19 07:24 97.8 F 69 20 157/70 H 100 09/09/19 07:19 70 16 96 Weight Admit Weight 161 lb Weight 161 lb I&O: 09/08/19 09/09/19 09/10/19 06:59 06:59 06:59 Intake Total 290 930 Output Total 200 750 Balance 90 180 Result Diagrams: 09/09/19 05:05 09/09/19 05:05 Additional Labs: Accuchecks 09/09/19 09/08/19 09/08/19 05:54 21:14 20:53 POC Glucose 130 H 115 H 124 H 09/08/19 16:30 POC Glucose 140 H Hospitalist ROS - Medication Medications: Active Medications Generic Name Dose Route Start Last Admin Trade Name Freq PRN Reason Stop Dose Admin Albuterol/Ipratropium 3 ml 09/07/19 20:44 09/08/19 19:01 Duoneb NEB 3 ml Q6H PRN Administration SOB &/or Wheezing Aspirin 81 mg 09/08/19 09:15 09/08/19 15:47 Ecotrin PO Not Given Q2DAYS [place] Atorvastatin Calcium 40 mg 09/09/19 09:00 09/09/19 08:36 Lipitor PO 40 mg DAILY [place] Administration Budesonide 0.25 mg 09/08/19 06:30 09/09/19 07:19 Pulmicort Neb Solution INH 0.25 mg BID-RT [place] Administration Carvedilol 6.25 mg 09/08/19 17:00 09/09/19 08:36 Coreg PO 6.25 mg BID-WM [place] Administration Cholecalciferol 400 units 09/09/19 09:00 09/09/19 08:32 Vitamin D PO 400 units DAILY [place] Administration Digoxin 0.125 mg 09/09/19 09:00 09/09/19 08:33 Lanoxin PO 0.125 mg DAILY [place] Administration Finasteride 5 mg 09/09/19 09:00 09/09/19 08:36 Proscar PO 5 mg DAILY [place] Administration Folic Acid 1 mg 09/09/19 09:00 09/09/19 08:36 Folvite PO Not Given DAILY [place] Furosemide 40 mg 09/08/19 21:00 09/09/19 08:36 Lasix PO 40 mg BID [place] Administration Heparin Sodium (Porcine) 5,000 units 09/07/19 21:00 09/09/19 08:40 Heparin SC Not Given TID [place] Hydralazine HCl 10 mg 09/07/19 20:31 09/09/19 00:11 Apresoline SLOW IVP 10 mg Q6H PRN Administration SBP GREATER THAN 160 Hydralazine HCl 25 mg 09/08/19 15:00 09/09/19 08:32 Apresoline PO 25 mg TID [place] Administration Clindamycin Phosphate/Dextrose 50 mls @ 100 mls/hr 09/08/19 06:00 09/09/19 06 :20 600 mg/ Device IVPB 50 mls Q8HR [place] Administration Isosorbide Mononitrate 30 mg 09/09/19 09:00 09/09/19 08:32 Imdur Er PO 30 mg DAILY [place] Administration Mometasone Furoate/Formoterol Fumar 2 puff 09/08/19 18:30 09/09/19 07:33 Dulera 200 Mcg/5 Mcg Inhaler INH 2 puff BID-RT [place] Administration Multivitamins 1 tab 09/09/19 09:00 09/09/19 08:36 Theragran PO 1 tab DAILY [place] Administration Nicotine 7 mg 09/08/19 10:00 09/08/19 10:31 Nicoderm Patch TD 7 mg 1000 [place] Administration Nystatin 1 gm 09/07/19 21:00 09/09/19 08:40 Mycostatin Powder TOP 1 gm BID [place] Administration Pantoprazole Sodium 40 mg 09/09/19 09:00 09/09/19 08:39 Protonix PO Not Given DAILY [facility] Senna 8.6 tab 09/09/19 09:00 09/09/19 08:41 Senokot PO Not Given DAILY [place] Senna/Docusate Sodium 1 tab 09/07/19 21:00 09/09/19 08:36 Senokot S PO 1 tab BID [place] Administration Terazosin HCl 1 mg 09/08/19 21:00 09/08/19 21:25 Hytrin PO 1 mg HS [place] Administration - Exam General Appearance: NAD, awake alert Heart: RRR, II/IV Respiratory: CTAB, no wheezes, no rales, no ronchi, normal chest expansion, no tachypnea, normal percussion Gastrointestinal: soft, non-tender, non-distended, normal bowel sounds, no palpable masses, no hepatomegaly, no splenomegaly, no bruit Extremities - other findings: RLE with persistent erythema. Open lesions dressed. Musculoskeletal: generalized weakness Psychiatric: normal affect, normal behavior, A&O x 3 Hosp A/P (1) Cellulitis of right leg Code(s): L03.115 - CELLULITIS OF RIGHT LOWER LIMB Status: Acute (2) Atrial fibrillation Code(s): I48.91 - UNSPECIFIED ATRIAL FIBRILLATION Status: Chronic Qualifiers: Atrial fibrillation type: persistent (3) BPH (benign prostatic hyperplasia) Code(s): N40.0 - BENIGN PROSTATIC HYPERPLASIA WITHOUT LOWER URINRY TRACT SYMP Status: Chronic (4) CAD (coronary artery disease) Code(s): I25.10 - ATHSCL HEART DISEASE OF [place] CORONARY ARTERY W/O ANG PCTRS Status: Chronic (5) CKD (chronic kidney disease), stage III Status: Chronic (6) COPD (chronic obstructive pulmonary disease) Status: Chronic (7) Physical deconditioning Code(s): R53.81 - OTHER MALAISE Status: Chronic (8) PVD (peripheral vascular disease) Code(s): I73.9 - PERIPHERAL VASCULAR DISEASE, UNSPECIFIED Status: Acute (9) Open wound of right lower leg Code(s): S81.801A - UNSPECIFIED OPEN WOUND, RIGHT LOWER LEG, INITIAL ENCOUNTER Status: Acute - Plan Doing ok. Feels like his breathing is at baseline. D/C steroids Resume home meds. Continue IV clinda for cellulitis. Add Rocephin. Will likely need to convert to po Keflex when improving. Continue WCT for topical wound care. Nicotine patch. Had AFRO today. Severe PVD not amenable to cath based intervention. Dr. Ruth consulted. Does not feel his arteries would tolerate clamps for surgery. Plan is to continue to work on the active cellulitis. If he cannot heal or if he has ischemia, amputation would be the suggested option. Patient is not inclined to discontinue smoking.
[2019-09-09] MEDS: Nicotine 7 MG PATCH TD SCH ×2 (17:03→17:06)
[2019-09-09] MEDS: Terazosin HCl 1 MG CAP PO SCH (20:02)
[2019-09-10] MEDS: Clindamycin/D5W 600 MG in Premix Bag 1 BAG IVPB SCH ×3 (05:42→21:41)
[2019-09-10] MEDS: hydrALAZINE 20 MG/ML VIAL SLOW IVP PRN ×2 (05:46→21:46)
[2019-09-10 07:04] LABS: Anion Gap 11 mmol/L (10-20); BUN (Urea Nitrogen) 26 mg/dL (8.4-25.7); Calc. Creatinine Clearance 52 mL/min (70-130); Calcium 8.8 mg/dL (7.8-10.44); Carbon Dioxide 30 mmol/L (23-31); Chloride 107 mmol/L (98-107); Estimated GFR-MDRD 61; Glucose 164 mg/dL (83-110); Magnesium 2.3 mg/dL (1.6-2.6); Potassium 3.4 mmol/L (3.5-5.1); Sodium 145 mmol/L (136-145)
[2019-09-10] MEDS: Mometasone/Formoterol 120 PUFF INHALER INH SCH ×2 (07:10→20:51)
[2019-09-10] MEDS: Budesonide 0.25 MG/2 ML NEB INH SCH ×2 (07:11→20:51)
[2019-09-10 07:46] LABS: #Eosinphils 0.1 thou/uL (0.0-0.7); #Lymphocytes 0.3 thou/uL (1.20-3.40); #Monocytes 0.4 thou/uL (0.11-0.59); #Neutrophils 5.7 thou/uL (1.40-6.50); %Eosinophils 1.1 % (0.0-10.0); %Lymphocytes 4.6 % (21.0-51.0); %Monocytes 6.2 % (0.0-10.0); %Neutrophils 88.1 % (42.0-75.0); Hemoglobin 15.2 g/dL (14.0-18.0); Mean Corpuscular Hemoglobin 33.3 pg (27.0-31.0); Mean Platelet Volume 7.8 fL (7.4-10.4); Platelet Count 88 thou/uL (130-400); RBC Distribution Width 12.2 % (11.5-14.5); Red Blood Cell (RBC) Count 4.57 mill/uL (4.70-6.10); White Blood Cell (WBC) Count 6.5 thou/uL (4.8-10.8)
[2019-09-10] MEDS: Nystatin Powder 15 GM BOT TOP SCH ×2 (08:26→20:19)
[2019-09-10] MEDS: Heparin 5,000 UNITS/ML VIAL SC SCH ×3 (08:27→20:17)
[2019-09-10] MEDS: Atorvastatin Calcium 40 MG TAB PO SCH (08:28)
[2019-09-10] MEDS: Cholecalciferol (Vitamin D3) 400 UNITS TAB PO SCH (08:28)
[2019-09-10] MEDS: Finasteride 5 MG TAB PO SCH (08:29)
[2019-09-10] MEDS: Carvedilol 6.25 MG TAB PO SCH ×2 (08:29→16:53)
[2019-09-10] MEDS: Aspirin 81 mg Enteric Coated Tablet PO SCH (08:30)
[2019-09-10] MEDS: Isosorbide Mononitrate (ER) 30 MG TAB PO SCH (08:30)
[2019-09-10] MEDS: Furosemide 40 MG TAB PO SCH ×2 (08:30→20:17)
[2019-09-10] MEDS: Multivit, Therapeutic 1 TAB PO SCH (08:30)
[2019-09-10] MEDS: Digoxin 0.125 MG TAB PO SCH (08:30)
[2019-09-10] MEDS: hydrALAZINE 25 MG TAB PO SCH ×3 (08:30→20:17)
[2019-09-10] MEDS: Folic Acid 1 MG TAB PO SCH (08:30)
[2019-09-10] MEDS: Senokot 8.6 MG TAB PO SCH (08:31)
[2019-09-10] MEDS: Senokot S 8.6-50 MG TAB PO SCH ×2 (09:22→20:17)
--- NOTE | 2019-09-10 10:19 | PDOC.HOSPP ---
- Subjective Encounter Date: 09/10/19 Encounter Time: 08:20 Subjective: Patient seen and examined. No new complaints. No overnight events - Objective Vital Signs & Weight: Vital Signs (12 hours) Temp Pulse Resp BP BP Pulse Ox 09/10/19 08:30 71 09/10/19 08:29 138/75 09/10/19 07:37 97.5 F L 68 18 138/75 97 09/10/19 07:16 95 09/10/19 07:12 71 18 95 09/10/19 07:11 79 18 95 09/10/19 07:10 71 18 95 09/10/19 06:23 150/87 H 09/10/19 05:46 75 182/90 H 09/10/19 04:35 97.8 F 70 18 182/90 H 95 09/10/19 01:02 69 20 94 L 09/09/19 23:52 98.0 F 72 16 167/84 H 95 Weight Admit Weight 161 lb Weight 161 lb I&O: 09/09/19 09/10/19 09/11/19 06:59 06:59 06:59 Intake Total 930 350 Output Total 750 800 Balance 180 -450 Result Diagrams: 09/10/19 06:02 09/10/19 06:02 Additional Labs: Accuchecks 09/10/19 09/09/19 09/09/19 05:47 19:51 16:37 POC Glucose 148 H 148 H 138 H Hospitalist ROS - Review of Systems ENT: denies: ear pain, ear discharge, nose pain, nose discharge, nose congestion , mouth pain, mouth swelling, throat pain, throat swelling, other Respiratory: denies: cough, dry, shortness of breath, hemoptysis, SOB with excertion, pleuritic pain, sputum, wheezing, other Cardiovascular: denies: chest pain, palpitations, orthopnea, paroxysmal noc. dyspnea, edema, light headedness, other Gastrointestinal: denies: nausea, vomiting, abdominal pain, diarrhea, constipation, melena, hematochezia, other Genitourinary: denies: dysuria, frequency, incontinence, hematuria, retention, other Musculoskeletal: denies: neck pain, shoulder pain, arm pain, back pain, hand pain, leg pain, foot pain, other - Medication Medications: Active Medications Generic Name Dose Route Start Last Admin Trade Name Freq PRN Reason Stop Dose Admin Albuterol/Ipratropium 3 ml 09/07/19 20:44 09/10/19 07:12 Duoneb NEB 3 ml Q6H PRN Administration SOB &/or Wheezing Aspirin 81 mg 09/08/19 09:15 09/10/19 08:30 Ecotrin PO 81 mg Q2DAYS [place] Administration Atorvastatin Calcium 40 mg 09/09/19 09:00 09/10/19 08:28 Lipitor PO 40 mg DAILY [place] Administration Budesonide 0.25 mg 09/08/19 06:30 09/10/19 07:11 Pulmicort Neb Solution INH 0.25 mg BID-RT [place] Administration Carvedilol 6.25 mg 09/08/19 17:00 09/10/19 08:29 Coreg PO 6.25 mg BID-WM [place] Administration Cholecalciferol 400 units 09/09/19 09:00 09/10/19 08:28 Vitamin D PO 400 units DAILY [place] Administration Digoxin 0.125 mg 09/09/19 09:00 09/10/19 08:30 Lanoxin PO 0.125 mg DAILY [place] Administration Finasteride 5 mg 09/09/19 09:00 09/10/19 08:29 Proscar PO 5 mg DAILY [place] Administration Folic Acid 1 mg 09/09/19 09:00 09/10/19 08:30 Folvite PO 1 mg DAILY [place] Administration Furosemide 40 mg 09/08/19 21:00 09/10/19 08:30 Lasix PO 40 mg BID [place] Administration Heparin Sodium (Porcine) 5,000 units 09/07/19 21:00 09/10/19 08:27 Heparin SC 5,000 units TID [place] Administration Hydralazine HCl 10 mg 09/07/19 20:31 09/10/19 05:46 Apresoline SLOW IVP 10 mg Q6H PRN Administration SBP GREATER THAN 160 Hydralazine HCl 25 mg 09/08/19 15:00 09/10/19 08:30 Apresoline PO 25 mg TID [place] Administration Clindamycin Phosphate/Dextrose 50 mls @ 100 mls/hr 09/08/19 06:00 09/10/19 05 :42 600 mg/ Device IVPB 50 mls Q8HR [place] Administration Isosorbide Mononitrate 30 mg 09/09/19 09:00 09/10/19 08:30 Imdur Er PO 30 mg DAILY [place] Administration Mometasone Furoate/Formoterol Fumar 2 puff 09/08/19 18:30 09/10/19 07:10 Dulera 200 Mcg/5 Mcg Inhaler INH 2 puff BID-RT [place] Administration Multivitamins 1 tab 09/09/19 09:00 09/10/19 08:30 Theragran PO 1 tab DAILY [place] Administration Nicotine 7 mg 09/09/19 17:00 09/09/19 17:03 Nicoderm Patch TD 7 mg 1700 [place] Administration Nystatin 1 gm 09/07/19 21:00 09/10/19 08:26 Mycostatin Powder TOP 1 gm BID [place] Administration Pantoprazole Sodium 40 mg 09/09/19 09:00 09/10/19 08:30 Protonix PO 40 mg DAILY [place] Administration Senna 8.6 tab 09/09/19 09:00 09/10/19 08:31 Senokot PO Not Given DAILY [place] Senna/Docusate Sodium 1 tab 09/07/19 21:00 09/10/19 09:22 Senokot S PO 1 tab BID [place] Administration Terazosin HCl 1 mg 09/08/19 21:00 09/09/19 20:02 Hytrin PO 1 mg HS [place] Administration - Exam General Appearance: NAD, awake alert Eye: PERRL, anicteric sclera ENT: normocephalic atraumatic, no oropharyngeal lesions Neck: supple, symmetric, no JVD Heart: RRR, no murmur, no gallops Respiratory: CTAB, no wheezes, no rales, no ronchi Gastrointestinal: soft, non-tender, non-distended, normal bowel sounds Extremities - other findings: right leg cellulitis Skin: normal turgor, no lesions Neurological: no focal deficits Musculoskeletal: normal tone, normal strength Hosp A/P (1) Cellulitis of right leg Code(s): L03.115 - CELLULITIS OF RIGHT LOWER LIMB Status: Acute (2) Open wound of right lower leg Code(s): S81.801A - UNSPECIFIED OPEN WOUND, RIGHT LOWER LEG, INITIAL ENCOUNTER Status: Acute (3) PVD (peripheral vascular disease) Code(s): I73.9 - PERIPHERAL VASCULAR DISEASE, UNSPECIFIED Status: Chronic (4) Atrial fibrillation Code(s): I48.91 - UNSPECIFIED ATRIAL FIBRILLATION Status: Chronic Qualifiers: Atrial fibrillation type: persistent (5) BPH (benign prostatic hyperplasia) Code(s): N40.0 - BENIGN PROSTATIC HYPERPLASIA WITHOUT LOWER URINRY TRACT SYMP Status: Chronic (6) CAD (coronary artery disease) Code(s): I25.10 - ATHSCL HEART DISEASE OF [place] CORONARY ARTERY W/O ANG PCTRS Status: Chronic (7) CKD (chronic kidney disease), stage III Status: Chronic (8) COPD (chronic obstructive pulmonary disease) Status: Chronic (9) Macrocytosis Code(s): D75.89 - OTHER SPECIFIED DISEASES OF BLOOD AND BLOOD-FORMING ORGANS Status: Chronic (10) Physical deconditioning Code(s): R53.81 - OTHER [place]ISE Status: Chronic (11) Thrombocytopenia Code(s): D69.6 - THROMBOCYTOPENIA, UNSPECIFIED Status: Chronic - Plan old records reviewed/req continue iv antibiotics, medication reviewed and continue to provide symptomatic treatment and supportive care, not a candidate for revascularization
--- NOTE | 2019-09-10 15:59 | CCL ---
DATE OF SERVICE: 09/09/19 PREPROCEDURE DIAGNOSIS: Severe peripheral vascular disease with nonhealing ulcers. POSTPROCEDURE DIAGNOSIS: Severe peripheral vascular disease with not amenable to catheter based intervention. PROCEDURES: 1. Selective abdominal aortography with runoff. 2. Selective left common iliac angiography with runoff. 3. Selective right common iliac angiography with runoff. ESTIMATED BLOOD LOSS: 10 mL COMPLICATIONS: None apparent. SAMPLES OBTAINED: None. SEDATION: Moderate sedation. Under physicians supervision, versed and fentanyl were administered intravenously for moderate sedati on. Pulse oximetry, heart rhythm, blood pressure were continuously monitored by independent observer present. The physician spent a total of 45 minutes [id number] attendance time during sedation with the patient. FINDINGS: Abdominal aorta is widely patent with a very small aneurysmal dilatation infrarenal. It gives rise to bilateral iliacs. On the right iliac, there is an old stent with what appears to be a 50 to 60% sten osis but no significant gradient. On the left system, is widely patent. There is atherosclerotic dise ase with a 90% obstruction right before the bifurcation of internal and external iliac. I could not c ross this with a wire. He then has a severe common femoral disease, heavily calcified vessels and sev ere ostial profunda femoris disease and an occluded ostial superficial femoral artery. There is sever al stents on the superficial femoral artery distally which are all completely occluded. The SFA does not reconstitute up until popliteal at the level of the knee where it gives off a two vessel runoff. Posterior tibialis artery is occluded. On the right leg, there are several 60% lesions on the iliac system with no significant gradient on p ullback. Selective angiography showed heavily calcified ostial proximal SFA and severely diseased ostial profu nda femoris. He does have good three vessel runoff on this artery though. SFA reconstitutes in the di stal segment and popliteal is widely patent with good three vessel runoff. SUMMARY: The patient is a pleasant 84-year-old white gentleman who comes to the catheterization lab for evalua tion of nonhealing ulcers. He was prepped and draped in the usual sterile fashion. Consents were sign ed and verified. Timeout was performed and access was obtained with a 5 [place] sheath. We then advanc ed an Omni Flush catheter and selectively engage the abdominal aorta. We had to use a rim catheter to the left to selective engage the left common iliac system and selective angiography was done with ru noffs. See above for details. We then pulled the catheter back selectively and engage the right commo n iliac system and selective angiography was done with runoffs. The patient tolerated the procedure well. For hemostasis, manual pressure was held. RECOMMENDATIONS: 1. Optimum medical therapy and risk factor modification. 2. Evaluation by vascular surgery for possible intervention; however, options are very limited a nd would not be surprised if medical therapy is recommended. 3. Bed rest. 4. Continue wound care for nonhealing ulcers and antibiotic therapy for cellulitis.
[2019-09-10] MEDS: HumaLOG 300 UNITS/3 ML VIAL SC PRN (16:53)
[2019-09-10] MEDS: Nicotine 7 MG PATCH TD SCH (16:53)
[2019-09-10] MEDS: Terazosin HCl 1 MG CAP PO SCH (20:17)
[2019-09-11] MEDS: hydrALAZINE 20 MG/ML VIAL SLOW IVP PRN ×2 (03:29→11:37)
[2019-09-11] MEDS: Clindamycin/D5W 600 MG in Premix Bag 1 BAG IVPB SCH ×3 (05:30→21:01)
[2019-09-11] MEDS: cloNIDine 0.1 MG TAB PO PRN (05:34)
[2019-09-11] MEDS: Budesonide 0.25 MG/2 ML NEB INH SCH ×2 (05:46→19:35)
[2019-09-11] MEDS: Mometasone/Formoterol 120 PUFF INHALER INH SCH ×2 (08:47→19:37)
[2019-09-11] MEDS: Nystatin Powder 15 GM BOT TOP SCH ×2 (08:52→20:06)
[2019-09-11] MEDS: Digoxin 0.125 MG TAB PO SCH (08:53)
[2019-09-11] MEDS: Cholecalciferol (Vitamin D3) 400 UNITS TAB PO SCH (08:53)
[2019-09-11] MEDS: Atorvastatin Calcium 40 MG TAB PO SCH (08:53)
[2019-09-11] MEDS: Multivit, Therapeutic 1 TAB PO SCH (08:54)
[2019-09-11] MEDS: hydrALAZINE 25 MG TAB PO SCH ×3 (08:54→20:13)
[2019-09-11] MEDS: Furosemide 40 MG TAB PO SCH ×2 (08:54→20:06)
[2019-09-11] MEDS: Folic Acid 1 MG TAB PO SCH (08:54)
[2019-09-11] MEDS: Finasteride 5 MG TAB PO SCH (08:54)
[2019-09-11] MEDS: Isosorbide Mononitrate (ER) 30 MG TAB PO SCH (08:54)
[2019-09-11] MEDS: Carvedilol 6.25 MG TAB PO SCH ×2 (08:54→17:53)
[2019-09-11] MEDS: Senokot S 8.6-50 MG TAB PO SCH ×2 (08:54→20:13)
[2019-09-11] MEDS: Senokot 8.6 MG TAB PO SCH (08:55)
[2019-09-11] MEDS: HumaLOG 300 UNITS/3 ML VIAL SC PRN ×2 (11:37→17:54)
--- NOTE | 2019-09-11 11:43 | PDOC.HOSPP ---
- Subjective Encounter Date: 09/11/19 Encounter Time: 09:30 Subjective: Patient seen and examined. No new complaints. No overnight events - Objective Vital Signs & Weight: Vital Signs (12 hours) Temp Pulse Resp BP BP BP Pulse Ox 09/11/19 10:53 97.7 F 84 18 191/92 H 97 09/11/19 08:54 76 170/77 H 09/11/19 08:53 76 09/11/19 08:47 76 16 09/11/19 07:35 97.8 F 76 16 159/76 H 96 09/11/19 05:43 71 18 96 09/11/19 05:34 170/77 H 09/11/19 03:29 71 170/90 H 09/11/19 03:27 98.7 F 71 16 170/90 H 97 Weight Admit Weight 161 lb Weight 161 lb I&O: 09/10/19 09/11/19 09/12/19 06:59 06:59 06:59 Intake Total 350 960 240 Output Total 800 625 Balance -450 335 240 Result Diagrams: 09/10/19 06:02 09/10/19 06:02 Additional Labs: Accuchecks 09/11/19 09/11/19 09/10/19 10:58 05:33 21:39 POC Glucose 171 H 130 H 123 H 09/10/19 09/10/19 16:25 12:20 POC Glucose 172 H 125 H Hospitalist ROS - Review of Systems ENT: denies: ear pain, ear discharge, nose pain, nose discharge, nose congestion , mouth pain, mouth swelling, throat pain, throat swelling, other Respiratory: denies: cough, dry, shortness of breath, hemoptysis, SOB with excertion, pleuritic pain, sputum, wheezing, other Cardiovascular: denies: chest pain, palpitations, orthopnea, paroxysmal noc. dyspnea, edema, light headedness, other Gastrointestinal: denies: nausea, vomiting, abdominal pain, diarrhea, constipation, melena, hematochezia, other Genitourinary: denies: dysuria, frequency, incontinence, hematuria, retention, other Musculoskeletal: denies: neck pain, shoulder pain, arm pain, back pain, hand pain, leg pain, foot pain, other - Medication Medications: Active Medications Generic Name Dose Route Start Last Admin Trade Name Freq PRN Reason Stop Dose Admin Albuterol/Ipratropium 3 ml 09/07/19 20:44 09/10/19 20:50 Duoneb NEB 3 ml Q6H PRN Administration SOB &/or Wheezing Aspirin 81 mg 09/08/19 09:15 09/10/19 08:30 Ecotrin PO 81 mg Q2DAYS [place] Administration Atorvastatin Calcium 40 mg 09/09/19 09:00 09/11/19 08:53 Lipitor PO 40 mg DAILY [place] Administration Budesonide 0.25 mg 09/08/19 06:30 09/11/19 05:46 Pulmicort Neb Solution INH 0.25 mg BID-RT [place] Administration Carvedilol 6.25 mg 09/08/19 17:00 09/11/19 08:54 Coreg PO 6.25 mg BID-WM [place] Administration Cholecalciferol 400 units 09/09/19 09:00 09/11/19 08:53 Vitamin D PO 400 units DAILY [place] Administration Clonidine 0.1 mg 09/07/19 20:31 09/11/19 05:34 Catapres PO 0.1 mg Q4H PRN Administration SBP > 160 use second Digoxin 0.125 mg 09/09/19 09:00 09/11/19 08:53 Lanoxin PO 0.125 mg DAILY [place] Administration Finasteride 5 mg 09/09/19 09:00 09/11/19 08:54 Proscar PO 5 mg DAILY [place] Administration Folic Acid 1 mg 09/09/19 09:00 09/11/19 08:54 Folvite PO 1 mg DAILY [place] Administration Furosemide 40 mg 09/08/19 21:00 09/11/19 08:54 Lasix PO 40 mg BID [place] Administration Hydralazine HCl 10 mg 09/07/19 20:31 09/11/19 03:29 Apresoline SLOW IVP 10 mg Q6H PRN Administration SBP GREATER THAN 160 Hydralazine HCl 25 mg 09/08/19 15:00 09/11/19 08:54 Apresoline PO 25 mg TID [place] Administration Clindamycin Phosphate/Dextrose 50 mls @ 100 mls/hr 09/08/19 06:00 09/11/19 05 :30 600 mg/ Device IVPB 50 mls Q8HR [place] Administration Insulin Human Lispro 0 units 09/07/19 20:34 09/10/19 16:53 Humalog SC 2 unit .MILD SLIDING SCALE PRN Administration Mild Correctional Scale Ipratropium [place] 2.5 ml 09/08/19 09:42 09/11/19 05:43 Atrovent NEB 2.5 ml Q6H PRN Administration SOB &/or Wheezing Isosorbide Mononitrate 30 mg 09/09/19 09:00 09/11/19 08:54 Imdur Er PO 30 mg DAILY [place] Administration Mometasone Furoate/Formoterol Fumar 2 puff 09/08/19 18:30 09/11/19 08:47 Dulera 200 Mcg/5 Mcg Inhaler INH 2 puff BID-RT [place] Administration Multivitamins 1 tab 09/09/19 09:00 09/11/19 08:54 Theragran PO 1 tab DAILY [place] Administration Nicotine 7 mg 09/09/19 17:00 09/10/19 16:53 Nicoderm Patch TD 7 mg 1700 [place] Administration Nystatin 1 gm 09/07/19 21:00 09/11/19 08:52 Mycostatin Powder TOP 1 gm BID [place] Administration Pantoprazole Sodium 40 mg 09/09/19 09:00 09/11/19 08:54 Protonix PO 40 mg DAILY [place] Administration Sacubitril/Valsartan 1 tab 09/10/19 21:00 09/11/19 08:53 Entresto 24 Mg-26 Mg Tablet PO 1 tab BID [place] Administration Senna 8.6 tab 09/09/19 09:00 09/11/19 08:55 Senokot PO Not Given DAILY [place] Senna/Docusate Sodium 1 tab 09/07/19 21:00 09/11/19 08:54 Senokot S PO 1 tab BID [place] Administration Terazosin HCl 1 mg 09/08/19 21:00 09/10/19 20:17 Hytrin PO 1 mg HS [place] Administration - Exam General Appearance: NAD, awake alert Eye: PERRL, anicteric sclera ENT: normocephalic atraumatic, no oropharyngeal lesions Neck: supple, symmetric, no JVD, no thyromegaly Heart: RRR, no murmur, no gallops Respiratory: CTAB, no wheezes, no rales Gastrointestinal: soft, non-tender, non-distended Extremities: no cyanosis, no clubbing Extremities - other findings: right leg wound noted with dressing and cellulitis improving Skin: normal turgor, no lesions Neurological: no focal deficits Musculoskeletal: normal tone, normal strength Psychiatric: normal affect, normal behavior Hosp A/P (1) Cellulitis of right leg Code(s): L03.115 - CELLULITIS OF RIGHT LOWER LIMB Status: Acute (2) Open wound of right lower leg Code(s): S81.801A - UNSPECIFIED OPEN WOUND, RIGHT LOWER LEG, INITIAL ENCOUNTER Status: Acute (3) PVD (peripheral vascular disease) Code(s): I73.9 - PERIPHERAL VASCULAR DISEASE, UNSPECIFIED Status: Chronic (4) Atrial fibrillation Code(s): I48.91 - UNSPECIFIED ATRIAL FIBRILLATION Status: Chronic Qualifiers: Atrial fibrillation type: persistent (5) BPH (benign prostatic hyperplasia) Code(s): N40.0 - BENIGN PROSTATIC HYPERPLASIA WITHOUT LOWER URINRY TRACT SYMP Status: Chronic (6) CAD (coronary artery disease) Code(s): I25.10 - ATHSCL HEART DISEASE OF [place] CORONARY ARTERY W/O ANG PCTRS Status: Chronic (7) CKD (chronic kidney disease), stage III Status: Chronic (8) COPD (chronic obstructive pulmonary disease) Status: Chronic (9) Macrocytosis Code(s): D75.89 - OTHER SPECIFIED DISEASES OF BLOOD AND BLOOD-FORMING ORGANS Status: Chronic (10) Physical deconditioning Code(s): R53.81 - OTHER MALAISE Status: Chronic (11) Thrombocytopenia Code(s): D69.6 - THROMBOCYTOPENIA, UNSPECIFIED Status: Chronic - Plan old records reviewed/req, continue antibiotics continue iv antibiotics, medication reviewed and continue to provide symptomatic treatment and supportive care, not a candidate for revascularization 09/11/19, continue current antibiotics, will repeat labs tomorrow, medication reviewed and continue to provide symptomatic treatment and supportive care , possible discharge tomorrow
[2019-09-11] MEDS: Nicotine 7 MG PATCH TD SCH (17:53)
[2019-09-11] MEDS: Terazosin HCl 1 MG CAP PO SCH (20:13)
[2019-09-12 05:14] LABS: #Eosinphils 0.1 thou/uL (0.0-0.7); #Lymphocytes 0.5 thou/uL (1.20-3.40); #Monocytes 0.6 thou/uL (0.11-0.59); #Neutrophils 8.4 thou/uL (1.40-6.50); %Basophils 0.2 % (0.0-1.0); %Eosinophils 0.7 % (0.0-10.0); %Lymphocytes 5.3 % (21.0-51.0); %Monocytes 6.1 % (0.0-10.0); %Neutrophils 87.7 % (42.0-75.0); Mean Corpuscular HGB CONC 32.4 g/dL (32.0-36.0); Mean Corpuscular Hemoglobin 32.7 pg (27.0-31.0); Mean Platelet Volume 9.9 fL (7.4-10.4); Platelet Count 131 thou/uL (130-400); RBC Distribution Width 12.5 % (11.5-14.5); Red Blood Cell (RBC) Count 5.18 mill/uL (4.70-6.10); White Blood Cell (WBC) Count 9.6 thou/uL (4.8-10.8)
[2019-09-12] MEDS: Clindamycin/D5W 600 MG in Premix Bag 1 BAG IVPB SCH ×3 (05:33→21:43)
[2019-09-12 06:31] LABS: Anion Gap 14 mmol/L (10-20); BUN (Urea Nitrogen) 36 mg/dL (8.4-25.7); CRP (Inflammatory) 2.66 mg/dL (= or < 0.5); Calc. Creatinine Clearance 51 mL/min (70-130); Calcium 9.4 mg/dL (7.8-10.44); Carbon Dioxide 30 mmol/L (23-31); Chloride 103 mmol/L (98-107); Estimated GFR-MDRD 61; Glucose 147 mg/dL (83-110); Potassium 3.7 mmol/L (3.5-5.1); Sodium 143 mmol/L (136-145)
[2019-09-12] MEDS: Budesonide 0.25 MG/2 ML NEB INH SCH ×2 (07:17→19:03)
[2019-09-12] MEDS: Mometasone/Formoterol 120 PUFF INHALER INH SCH ×2 (07:20→19:04)
[2019-09-12] MEDS: Senokot S 8.6-50 MG TAB PO SCH ×2 (08:15→21:38)
[2019-09-12] MEDS: Digoxin 0.125 MG TAB PO SCH (08:15)
[2019-09-12] MEDS: Carvedilol 6.25 MG TAB PO SCH ×2 (08:16→16:15)
[2019-09-12] MEDS: Furosemide 40 MG TAB PO SCH ×2 (08:16→21:37)
[2019-09-12] MEDS: Finasteride 5 MG TAB PO SCH (08:16)
[2019-09-12] MEDS: hydrALAZINE 25 MG TAB PO SCH ×2 (08:16→14:14)
[2019-09-12] MEDS: Aspirin 81 mg Enteric Coated Tablet PO SCH (08:16)
[2019-09-12] MEDS: Cholecalciferol (Vitamin D3) 400 UNITS TAB PO SCH (08:16)
[2019-09-12] MEDS: Atorvastatin Calcium 40 MG TAB PO SCH (08:17)
[2019-09-12] MEDS: Multivit, Therapeutic 1 TAB PO SCH (08:17)
[2019-09-12] MEDS: Senokot 8.6 MG TAB PO SCH (08:17)
[2019-09-12] MEDS: Isosorbide Mononitrate (ER) 30 MG TAB PO SCH (08:17)
[2019-09-12] MEDS: Folic Acid 1 MG TAB PO SCH (08:17)
[2019-09-12] MEDS: Nystatin Powder 15 GM BOT TOP SCH ×2 (08:18→21:48)
--- NOTE | 2019-09-12 09:36 | PRG ---
DATE OF SERVICE: 09/12/2019 SUBJECTIVE: Mr. Baker is not having chest pain or pressure. He is comfortable. He is anticipating going back to [place] soon. OBJECTIVE: VITAL SIGNS: His blood pressure is high 169/73, pulse 70. LUNGS: Clear. CARDIAC: Normal S1, normal S2. EXTREMITIES: Warm and dry. LABORATORY DATA: BUN is 36. ASSESSMENT: 1. Congestive heart failure, systolic, chronic, stable. 2. Hypertension, blood pressure is still elevated. 3. Peripheral vascular disease, not a candidate for revascularization per the notes of Dr. Mo and Dr. Ruth. PLAN: 1. Increase Entresto to 49/51 twice a day. 2. The patient is being planned on being transferred back to the [facility] soon. I will be available if needed. Job ID: [id number]
--- NOTE | 2019-09-12 10:36 | PDOC.HOSPP ---
- Subjective Encounter Date: 09/12/19 Encounter Time: 09:00 Subjective: Patient seen and examined. No new complaints. No overnight events - Objective Vital Signs & Weight: Vital Signs (12 hours) Temp Pulse Resp BP BP BP Pulse Ox 09/12/19 08:16 169/73 H 09/12/19 08:15 77 09/12/19 07:28 97.6 F 77 16 169/73 H 99 09/12/19 07:17 59 L 14 97 09/12/19 03:47 98.4 F 76 18 153/83 H 93 L 09/11/19 23:53 97.8 F 60 16 162/79 H 96 Weight Admit Weight 161 lb Weight 161 lb I&O: 09/11/19 09/12/19 09/13/19 06:59 06:59 06:59 Intake Total 960 840 Output Total 625 600 Balance 335 240 Result Diagrams: 09/12/19 04:33 09/12/19 05:46 Additional Labs: Accuchecks 09/12/19 09/11/19 09/11/19 05:40 20:37 17:56 POC Glucose 146 H 121 H 191 H 09/11/19 09/11/19 16:10 10:58 POC Glucose 229 H 171 H Hospitalist ROS - Review of Systems ENT: denies: ear pain, ear discharge, nose pain, nose discharge, nose congestion , mouth pain, mouth swelling, throat pain, throat swelling, other Respiratory: denies: cough, dry, shortness of breath, hemoptysis, SOB with excertion, pleuritic pain, sputum, wheezing, other Cardiovascular: denies: chest pain, palpitations, orthopnea, paroxysmal noc. dyspnea, edema, light headedness, other Gastrointestinal: denies: nausea, vomiting, abdominal pain, diarrhea, constipation, melena, hematochezia, other Genitourinary: denies: dysuria, frequency, incontinence, hematuria, retention, other Musculoskeletal: denies: neck pain, shoulder pain, arm pain, back pain, hand pain, leg pain, foot pain, other - Medication Medications: Active Medications Generic Name Dose Route Start Last Admin Trade Name Freq PRN Reason Stop Dose Admin Albuterol/Ipratropium 3 ml 09/07/19 20:44 09/12/19 07:20 Duoneb NEB 3 ml Q6H PRN Administration SOB &/or Wheezing Aspirin 81 mg 09/08/19 09:15 09/12/19 08:16 Ecotrin PO 81 mg Q2DAYS [place] Administration Atorvastatin Calcium 40 mg 09/09/19 09:00 09/12/19 08:17 Lipitor PO 40 mg DAILY [place] Administration Budesonide 0.25 mg 09/08/19 06:30 09/12/19 07:17 Pulmicort Neb Solution INH 0.25 mg BID-RT [place] Administration Carvedilol 6.25 mg 09/08/19 17:00 09/12/19 08:16 Coreg PO 6.25 mg BID-WM [place] Administration Cholecalciferol 400 units 09/09/19 09:00 09/12/19 08:16 Vitamin D PO 400 units DAILY [place] Administration Clonidine 0.1 mg 09/07/19 20:31 09/11/19 05:34 Catapres PO 0.1 mg Q4H PRN Administration SBP > 160 use second Digoxin 0.125 mg 09/09/19 09:00 09/12/19 08:15 Lanoxin PO 0.125 mg DAILY [place] Administration Finasteride 5 mg 09/09/19 09:00 09/12/19 08:16 Proscar PO 5 mg DAILY [place] Administration Folic Acid 1 mg 09/09/19 09:00 09/12/19 08:17 Folvite PO 1 mg DAILY [place] Administration Furosemide 40 mg 09/08/19 21:00 09/12/19 08:16 Lasix PO 40 mg BID [place] Administration Hydralazine HCl 10 mg 09/07/19 20:31 09/11/19 11:37 Apresoline SLOW IVP 10 mg Q6H PRN Administration SBP GREATER THAN 160 Hydralazine HCl 25 mg 09/08/19 15:00 09/12/19 08:16 Apresoline PO 25 mg TID [place] Administration Clindamycin Phosphate/Dextrose 50 mls @ 100 mls/hr 09/08/19 06:00 09/12/19 05 :33 600 mg/ Device IVPB 50 mls Q8HR [place] Administration Insulin Human Lispro 0 units 09/07/19 20:34 09/11/19 17:54 Humalog SC 2 unit .MILD SLIDING SCALE PRN Administration Mild Correctional Scale Ipratropium [place] 2.5 ml 09/08/19 09:42 09/11/19 05:43 Atrovent NEB 2.5 ml Q6H PRN Administration SOB &/or Wheezing Isosorbide Mononitrate 30 mg 09/09/19 09:00 09/12/19 08:17 Imdur Er PO 30 mg DAILY [place] Administration Mometasone Furoate/Formoterol Fumar 2 puff 09/08/19 18:30 09/12/19 07:20 Dulera 200 Mcg/5 Mcg Inhaler INH 2 puff BID-RT [place] Administration Multivitamins 1 tab 09/09/19 09:00 09/12/19 08:17 Theragran PO 1 tab DAILY [place] Administration Nicotine 7 mg 09/09/19 17:00 09/11/19 17:53 Nicoderm Patch TD 7 mg 1700 [place] Administration Nystatin 1 gm 09/07/19 21:00 09/12/19 08:18 Mycostatin Powder TOP 1 gm BID [place] Administration Pantoprazole Sodium 40 mg 09/09/19 09:00 09/12/19 08:17 Protonix PO 40 mg DAILY [place] Administration Senna 8.6 tab 09/09/19 09:00 09/12/19 08:17 Senokot PO 8.6 tab DAILY [place] Administration Senna/Docusate Sodium 1 tab 09/07/19 21:00 09/12/19 08:15 Senokot S PO 1 tab BID [place] Administration Terazosin HCl 1 mg 09/08/19 21:00 09/11/19 20:13 Hytrin PO Not Given HS [place] - Exam General Appearance: NAD, awake alert Eye: PERRL, anicteric sclera ENT: normocephalic atraumatic, no oropharyngeal lesions Neck: supple, symmetric, no JVD, no thyromegaly Heart: RRR, no murmur, no gallops, no rubs Respiratory: CTAB, no wheezes, no rales, no ronchi Gastrointestinal: soft, non-tender, non-distended, normal bowel sounds Extremities: no cyanosis, no clubbing Skin: normal turgor, no lesions Skin - other findings: wound on left leg Neurological: no focal deficits Musculoskeletal: normal tone, normal strength Psychiatric: normal affect, normal behavior Hosp A/P (1) Cellulitis of right leg Code(s): L03.115 - CELLULITIS OF RIGHT LOWER LIMB Status: Acute (2) Open wound of right lower leg Code(s): S81.801A - UNSPECIFIED OPEN WOUND, RIGHT LOWER LEG, INITIAL ENCOUNTER Status: Acute (3) PVD (peripheral vascular disease) Code(s): I73.9 - PERIPHERAL VASCULAR DISEASE, UNSPECIFIED Status: Chronic (4) Atrial fibrillation Code(s): I48.91 - UNSPECIFIED ATRIAL FIBRILLATION Status: Chronic Qualifiers: Atrial fibrillation type: persistent (5) BPH (benign prostatic hyperplasia) Code(s): N40.0 - BENIGN PROSTATIC HYPERPLASIA WITHOUT LOWER URINRY TRACT SYMP Status: Chronic (6) CAD (coronary artery disease) Code(s): I25.10 - ATHSCL HEART DISEASE OF [place] CORONARY ARTERY W/O ANG PCTRS Status: Chronic (7) CKD (chronic kidney disease), stage III Status: Chronic (8) COPD (chronic obstructive pulmonary disease) Status: Chronic (9) Macrocytosis Code(s): D75.89 - OTHER SPECIFIED DISEASES OF BLOOD AND BLOOD-FORMING ORGANS Status: Chronic (10) Physical deconditioning Code(s): R53.81 - OTHER MALAISE Status: Chronic (11) Thrombocytopenia Code(s): D69.6 - THROMBOCYTOPENIA, UNSPECIFIED Status: Chronic - Plan old records reviewed/req, plan discussed w/ family, continue antibiotics, PT/OT , social sciences lecturer continue iv antibiotics, medication reviewed and continue to provide symptomatic treatment and supportive care, not a candidate for revascularization 09/11/19, continue current antibiotics, will repeat labs tomorrow, medication reviewed and continue to provide symptomatic treatment and supportive care , possible discharge tomorrow 09/12/19, pt is very weak, he may need discharge planning to snu or rehab if possible, otherwise will arrange home health, possible discharge later today, discussed with family, high risk for readmission
--- NOTE | 2019-09-12 11:20 | DIS ---
DATE OF ADMISSION: 09/07/2019 DATE OF DISCHARGE: 09/12/2019 PRIMARY CARE PHYSICIAN: Thien Feliciano. DISCHARGE DISPOSITION: Home with home health. PRIMARY DISCHARGE DIAGNOSES: Right lower extremity cellulitis; open wound, right lower extremity; severe peripheral vascular disease. SECONDARY DISCHARGE DIAGNOSES: Chronic systolic heart failure, peripheral vascular disease, tobacco abuse disorder, physical deconditioning, paroxysmal atrial fibrillation, benign enlargement of prostate, coronary artery disease, chronic kidney disease stage 3, chronic obstructive pulmonary disease, macrocytosis. PRIMARY PROCEDURE/OPERATION: The patient underwent cardiac catheterization for peripheral vascular disease and the patient had selective abdominal aortography with runoff and selective left common iliac angiography with runoff and selective right common iliac angiography with runoff. RADIOLOGICAL INVESTIGATION: Ultrasound, lower extremity negative for any DVT. Echocardiography showed EF of 10-15%. SIGNIFICANT LABORATORY DATA: WBC 9.6, hemoglobin 17.0, MCV 101, platelet 131. Sodium 143, potassium 3.7, BUN 36, creatinine 1.15, calcium 9.5. CRP 2.6. Blood culture negative. DISCHARGE MEDICATION: 1. Aspirin 81 mg every other day. 2. Vitamin D3 400 units p.o. daily. 3. Proscar 5 mg daily. 4. Folic acid 1 mg daily. 5. Multivitamin one tablet daily. 6. Senna one tablet daily. 7. Terazosin 1 mg p.o. at bedtime. 8. Spiriva 18 mcg inhalation daily. 9. Ventolin HFA 2 puffs q.6 hourly p.r.n. 10. Clindamycin 150 mg q.6 hourly for 10 days. 11. Lipitor 40 mg p.o. daily. 12. Symbicort one puff inhalation b.i.d. 13. Coreg 6.25 mg b.i.d. 14. Digoxin 0.125 mg p.o. daily. 15. Lasix 40 mg p.o. b.i.d. 16. Hydralazine 25 mg t.i.d. 17. Imdur 30 mg p.o. daily. 18. Protonix 40 mg p.o. daily. 19. Florastor 250 mg p.o. daily. 20. Entresto 49/51 twice daily. CONTRAINDICATION: None. CODE STATUS: Full code. INPATIENT WAITER/WAITRESS BAR: Dr. Mo and Dr. Banks. Dr. Ruth was following while in hospital. TEST RESULTS PENDING ON DISCHARGE: None. ALLERGIES: PENICILLIN. DISCHARGE PLAN: Posthospital, the patient will follow up with primary care physician. HOSPITAL COURSE: An 84-year-old male, who was admitted by Dr. Beach. Please see his H and P for further details. The patient was having wound on his lower extremity which was not healing and also he was having cellulitis. The patient has underlying severe peripheral vascular disease and that is why for nonhealing wound cardiology was consulted and they did aortic runoff and based on finding, the patient was not a candidate for any intervention. Cardiovascular surgeon was consulted and they evaluated this patient as well and they were thinking that this patient is not a candidate for any kind of surgical intervention, but medical treatment was advised and in case if the patient wound does not improve or get worse, than he will need future amputation only. While in hospital he was treated with clindamycin with significant improvement. His cellulitis is much better. His home medication was continued while in hospital. Cardiology recommended to start Entresto on his home medication. The patient has physical deconditioning while in hospital and that is why with help of onsite case manager, we are either arranging fdc home or rehab if possible. If not then we will try to arrange home health for physical therapy and fdc at home. The patient was seen and examined at bedside today. Plan of care discussed with the family member. The patient is expected discharge possibly tomorrow or today depending upon arrangement. Job ID: [id number]
[2019-09-12] MEDS: cloNIDine 0.1 MG TAB PO PRN (14:14)
[2019-09-12] MEDS: HumaLOG 300 UNITS/3 ML VIAL SC PRN (16:14)
[2019-09-12] MEDS: Nicotine 7 MG PATCH TD SCH (16:15)
[2019-09-12] MEDS ORDERED: Sacubitril 49 MG/Valsartan 51 MG TABLET PO SCH (21:00)
[2019-09-12] MEDS: Terazosin HCl 1 MG CAP PO SCH (21:38)
[2019-09-12] MEDS: Sacubitril 49 MG/Valsartan 51 MG TABLET PO SCH (22:28)
[2019-09-13] MEDS: hydrALAZINE 25 MG TAB PO SCH ×4 (04:32→20:18)
[2019-09-13] MEDS: Sacubitril 49 MG/Valsartan 51 MG TABLET PO SCH ×3 (04:33→20:19)
[2019-09-13] MEDS: Clindamycin/D5W 600 MG in Premix Bag 1 BAG IVPB SCH ×3 (05:51→21:20)
[2019-09-13] MEDS: Budesonide 0.25 MG/2 ML NEB INH SCH ×2 (06:50→19:29)
[2019-09-13] MEDS: Mometasone/Formoterol 120 PUFF INHALER INH SCH ×2 (06:51→19:30)
[2019-09-13] MEDS: Isosorbide Mononitrate (ER) 30 MG TAB PO SCH (08:42)
[2019-09-13] MEDS: Cholecalciferol (Vitamin D3) 400 UNITS TAB PO SCH (08:42)
[2019-09-13] MEDS: Senokot S 8.6-50 MG TAB PO SCH ×2 (08:42→20:18)
[2019-09-13] MEDS: Atorvastatin Calcium 40 MG TAB PO SCH (08:42)
[2019-09-13] MEDS: Furosemide 40 MG TAB PO SCH ×2 (08:42→20:18)
[2019-09-13] MEDS: Senokot 8.6 MG TAB PO SCH (08:44)
[2019-09-13] MEDS: Digoxin 0.125 MG TAB PO SCH (08:45)
[2019-09-13] MEDS: Folic Acid 1 MG TAB PO SCH (08:45)
[2019-09-13] MEDS: Finasteride 5 MG TAB PO SCH (08:46)
[2019-09-13] MEDS: Carvedilol 6.25 MG TAB PO SCH ×2 (08:46→14:16)
[2019-09-13] MEDS: Nystatin Powder 15 GM BOT TOP SCH ×2 (08:47→20:18)
[2019-09-13] MEDS: Multivit, Therapeutic 1 TAB PO SCH (08:47)
--- NOTE | 2019-09-13 14:16 | PQF ---
GLYNN GONZALESURVASHI DO [id number] [facility]- [id number] CLINICAL DOCUMENTATION IMPROVEMENT CLARIFICATION FORM: ICD-10 Updated PLEASE DO AN ADDENDUM TO THE PROGRESS NOTE WITH ANY DOCUMENTATION UPDATES OR ADDITIONS AND CARRY THROUGH TO DC SUMMARY. THANK YOU. DATE: 09/13/19 ATTN: Dr. Hong Please exercise your independent, professional judgment in responding to the clarification form. Clinical indicators are provided on the bottom of this form for your review Please check appropriate box(s) to clarify if the following diagnosis has been ruled in or ruled out: Sepsis [ ] Ruled in diagnosis [ ] Continue to treat [ ] Resolved [ x ] Ruled out diagnosis [ ] Cannot rule out diagnosis [ ] Other diagnosis [ ] Unable to determine In addition, please specify: Present on Admission (POA): [ ] Yes [ x ] No [ ] Unable to determine For continuity of documentation, please document condition throughout progress notes and discharge summary. Thank You. CLINICAL INDICATORS - SIGNS / SYMPTOMS / LABS / RESULTS AND LOCATION IN MR 09/07 [place]: Sepsis 09/07 wbc 16.5 per lab RISK FACTORS / RESULTS AND LOCATION IN MR 09/07 [place]: "RLE cellulitis, sacral decubitus ulcer" 09/09 [place]: "open wound right lower leg" TREATMENTS / RESULTS AND LOCATION IN MR NS 500 ml bolus 09/07 per orders Clindamycin 900 mg IV once 09/07 to clindamycin 600mg IV Q8H 09/08-09/13 per orders (This form is maintained as a part of the permanent medical record) 2014 [employer]. All Rights Reserved Anusha Denis RN, BSN, CCDS [email or web address]
[2019-09-13] MEDS: Nicotine 7 MG PATCH TD SCH (14:21)
[2019-09-13] MEDS: Terazosin HCl 1 MG CAP PO SCH (20:18)
--- NOTE | 2019-09-13 20:30 | PDOC.HOSPP ---
- Subjective Encounter Date: 09/13/19 Encounter Time: 20:30 Subjective: f/u for severe PVD and LE wound on current IV Clindamycin. Awaiting SNF placement. - Objective Vital Signs & Weight: Vital Signs (12 hours) Temp Pulse Resp BP BP Pulse Ox 09/13/19 20:18 55 L 139/62 09/13/19 19:47 97.6 F 55 L 18 139/62 100 09/13/19 19:31 95 09/13/19 19:30 95 09/13/19 19:29 95 09/13/19 16:00 95 09/13/19 15:29 97.8 F 79 16 147/78 H 98 09/13/19 14:16 47 L 16 150/72 H 150/72 H 09/13/19 11:00 98.4 F 61 16 115/70 95 09/13/19 08:46 76 89/53 L 09/13/19 08:45 76 Weight Admit Weight 161 lb Weight 161 lb I&O: 09/12/19 09/13/19 09/14/19 06:59 06:59 06:59 Intake Total 840 1070 960 Output Total 600 800 450 Balance 240 270 510 Result Diagrams: 09/12/19 04:33 09/12/19 05:46 Additional Labs: Accuchecks 09/13/19 09/13/19 09/13/19 15:28 10:53 05:21 POC Glucose 154 H 149 H 130 H 09/12/19 21:05 POC Glucose 101 Microbiology 09/07/19 18:58 Venous blood - Left Hand Blood Culture - Final NO GROWTH IN 5 DAYS 09/07/19 18:44 Venous blood - Right Arm Blood Culture - Final NO GROWTH IN 5 DAYS Hospitalist ROS - Medication Medications: Active Medications Generic Name Dose Route Start Last Admin Trade Name Freq PRN Reason Stop Dose Admin Albuterol/Ipratropium 3 ml 09/07/19 20:44 09/13/19 19:29 Duoneb NEB 3 ml Q6H PRN Administration SOB &/or Wheezing Aspirin 81 mg 09/08/19 09:15 09/12/19 08:16 Ecotrin PO 81 mg Q2DAYS [place] Administration Atorvastatin Calcium 40 mg 09/09/19 09:00 09/13/19 08:42 Lipitor PO 40 mg DAILY [place] Administration Budesonide 0.25 mg 09/08/19 06:30 09/13/19 19:29 Pulmicort Neb Solution INH 0.25 mg BID-RT [place] Administration Carvedilol 6.25 mg 09/08/19 17:00 09/13/19 14:16 Coreg PO 6.25 mg BID-WM [place] Administration Cholecalciferol 400 units 09/09/19 09:00 09/13/19 08:42 Vitamin D PO 400 units DAILY [place] Administration Clonidine 0.1 mg 09/07/19 20:31 09/12/19 14:14 Catapres PO 0.1 mg Q4H PRN Administration SBP > 160 use second Digoxin 0.125 mg 09/09/19 09:00 09/13/19 08:45 Lanoxin PO 0.125 mg DAILY [place] Administration Finasteride 5 mg 09/09/19 09:00 09/13/19 08:46 Proscar PO 5 mg DAILY [place] Administration Folic Acid 1 mg 09/09/19 09:00 09/13/19 08:45 Folvite PO 1 mg DAILY [place] Administration Furosemide 40 mg 09/08/19 21:00 09/13/19 20:18 Lasix PO 40 mg BID [place] Administration Hydralazine HCl 10 mg 09/07/19 20:31 09/11/19 11:37 Apresoline SLOW IVP 10 mg Q6H PRN Administration SBP GREATER THAN 160 Hydralazine HCl 25 mg 09/08/19 15:00 09/13/19 20:18 Apresoline PO 25 mg TID [place] Administration Clindamycin Phosphate/Dextrose 50 mls @ 100 mls/hr 09/08/19 06:00 09/13/19 14 :16 600 mg/ Device IVPB 50 mls Q8HR [place] Administration Insulin Human Lispro 0 units 09/07/19 20:34 09/12/19 16:14 Humalog SC 3 unit .MILD SLIDING SCALE PRN Administration Mild Correctional Scale Ipratropium [place] 2.5 ml 09/08/19 09:42 09/11/19 05:43 Atrovent NEB 2.5 ml Q6H PRN Administration SOB &/or Wheezing Isosorbide Mononitrate 30 mg 09/09/19 09:00 09/13/19 08:42 Imdur Er PO 30 mg DAILY [place] Administration Mometasone Furoate/Formoterol Fumar 2 puff 09/08/19 18:30 09/13/19 19:30 Dulera 200 Mcg/5 Mcg Inhaler INH 2 puff BID-RT [place] Administration Multivitamins 1 tab 09/09/19 09:00 09/13/19 08:47 Theragran PO 1 tab DAILY [place] Administration Nicotine 7 mg 09/09/19 17:00 09/13/19 14:21 Nicoderm Patch TD 7 mg 1700 [place] Administration Nystatin 1 gm 09/07/19 21:00 09/13/19 20:18 Mycostatin Powder TOP 1 gm BID [place] Administration Pantoprazole Sodium 40 mg 09/09/19 09:00 09/13/19 08:45 Protonix PO 40 mg DAILY [place] Administration Sacubitril/Valsartan 1 tab 09/12/19 21:00 09/13/19 20:19 Entresto 49 Mg-51 Mg Tablet PO Not Given BID [place] Senna 8.6 tab 09/09/19 09:00 09/13/19 08:44 Senokot PO 8.6 tab DAILY [place] Administration Senna/Docusate Sodium 1 tab 09/07/19 21:00 09/13/19 20:18 Senokot S PO 1 tab BID [place] Administration Terazosin HCl 1 mg 09/08/19 21:00 09/13/19 20:18 Hytrin PO 1 mg HS [place] Administration - Exam General Appearance: NAD, awake alert Eye: PERRL, anicteric sclera ENT: normocephalic atraumatic, no oropharyngeal lesions Neck: supple, symmetric, no JVD, no thyromegaly Heart: no gallops, no rubs, irregular Respiratory - other findings: diminished in bases bilat Gastrointestinal: soft, non-tender, non-distended, normal bowel sounds, no palpable masses Extremities: 1+ LE edema Extremities - other findings: scattered wounds and erythema of RLE Skin: normal turgor Neurological: cranial nerve grossly intact, no new deficit Musculoskeletal: generalized weakness Psychiatric: A&O x 3 Hosp A/P (1) Cellulitis of right leg Code(s): L03.115 - CELLULITIS OF RIGHT LOWER LIMB Status: Acute Plan: Continue Clindamycin IV converting to po option once d/c'd (2) Open wound of right lower leg Code(s): S81.801A - UNSPECIFIED OPEN WOUND, RIGHT LOWER LEG, INITIAL ENCOUNTER Status: Acute Plan: Local WCT, turning protocol, continue Clindamycin (3) PVD (peripheral vascular disease) Code(s): I73.9 - PERIPHERAL VASCULAR DISEASE, UNSPECIFIED Status: Chronic Plan: Continue ASA q48h (4) Atrial fibrillation Code(s): I48.91 - UNSPECIFIED ATRIAL FIBRILLATION Status: Chronic Qualifiers: Atrial fibrillation type: persistent (5) CKD (chronic kidney disease), stage III Status: Chronic Plan: Avoid nephrotoxic meds and limit contrast exposure (6) Physical deconditioning Code(s): R53.81 - OTHER MALAISE Status: Chronic Plan: PT/OT for mobilization - Plan old records reviewed/req, continue antibiotics, PT/OT, social media assistant, out of bed/ambulate Stable currently Continue Clindamycin WCT for local care CM for SNF options
[2019-09-14] MEDS: Clindamycin/D5W 600 MG in Premix Bag 1 BAG IVPB SCH (05:39)
[2019-09-14] MEDS: Mometasone/Formoterol 120 PUFF INHALER INH SCH ×2 (07:38→18:44)
[2019-09-14] MEDS: Budesonide 0.25 MG/2 ML NEB INH SCH (07:40)
[2019-09-14] MEDS: Aspirin 81 mg Enteric Coated Tablet PO SCH (09:02)
[2019-09-14] MEDS: Digoxin 0.125 MG TAB PO SCH (09:02)
[2019-09-14] MEDS: Cholecalciferol (Vitamin D3) 400 UNITS TAB PO SCH (09:02)
[2019-09-14] MEDS: hydrALAZINE 25 MG TAB PO SCH ×2 (09:03→15:44)
[2019-09-14] MEDS: Sacubitril 49 MG/Valsartan 51 MG TABLET PO SCH (09:03)
[2019-09-14] MEDS: Isosorbide Mononitrate (ER) 30 MG TAB PO SCH (09:03)
[2019-09-14] MEDS: Multivit, Therapeutic 1 TAB PO SCH (09:03)
[2019-09-14] MEDS: Carvedilol 6.25 MG TAB PO SCH ×2 (09:03→17:31)
[2019-09-14] MEDS: Furosemide 40 MG TAB PO SCH (09:03)
[2019-09-14] MEDS: Finasteride 5 MG TAB PO SCH (09:03)
[2019-09-14] MEDS: Atorvastatin Calcium 40 MG TAB PO SCH (09:04)
[2019-09-14] MEDS: Folic Acid 1 MG TAB PO SCH (09:04)
[2019-09-14] MEDS: Nystatin Powder 15 GM BOT TOP SCH (09:08)
[2019-09-14] MEDS: Senokot S 8.6-50 MG TAB PO SCH (12:36)
[2019-09-14] MEDS: Senokot 8.6 MG TAB PO SCH (12:36)
[2019-09-14 15:45] VITALS: BP 105/56; TEMP 97.9
[2019-09-14] MEDS: Nicotine 7 MG PATCH TD SCH (17:30)
[2019-09-14] MEDS ORDERED: Clindamycin 150 MG CAP PO SCH (18:00)
[2019-09-15] MEDS ORDERED: Senokot 8.6 MG TAB PO SCH (09:00)
--- NOTE | 2019-09-15 14:52 | DIS ---
DATE OF ADMISSION: 09/07/2019 DATE OF DISCHARGE: 09/14/2019 ADDENDUM: DISCHARGE DIAGNOSES: 1. Right lower extremity cellulitis, improved. 2. Acute on chronic right lower extremity ulcerations secondary to severe peripheral vascular disease. 3. Chronic systolic congestive heart failure with ejection fraction of 15% to 20%. 4. Tobacco abuse ongoing. 5. Physical deconditioning, severe. 6. Paroxysmal atrial fibrillation. 7. Coronary artery disease. 8. Chronic kidney disease, stage 3. 9. Chronic obstructive pulmonary disease. 10. Chronic hypoxic respiratory failure, on chronic oxygen supplementation at 2 L/minute by nasal cannula. CONSULTATIONS: 1. Dr. Mo and Dr. Banks with Cardiology Service. 2. Dr. Ruth with Vascular Surgery Service. HOSPITAL COURSE: The patient's discharge was postponed for approximately 48 hours pending insurance approval for snf facility placement. The patient remained clinically stable and continued on IV clindamycin over the last 48 hours to complete approximately 7-day course of antibiotics for right lower extremity cellulitis. The patient will transition to oral clindamycin to complete outpatient treatment. The patient continued to receive local wound care for bilateral lower extremity ulceration and venous stasis changes in addition to cellulitis of the right lower extremity. Overall, the patient did remain clinically stable and I have examined the patient at the time of discharge and discussed followup instructions. The patient verbalized understanding and agreement, ready for discharge to [facility], 09/14/2019. Please see dictated discharge summary, 09/12/2019 for full details and medication reconciliation. TIME SPENT: Total time preparing and coordinating discharge is 33 minutes. Job ID: [id number]
== END 2019-09-14 19:00 | DRG 300 ==
LOC: ERS 18:31 → SJJU 19:37
PROVIDERS: ADMIT Internal Medicine; ATTEND Internal Medicine
PROC: B41D1ZZ Fluoroscopy of Aorta and Bilateral Lower Extremity Arteries using Low Osmolar Contrast (ICD-10-PCS; principal; 2019-09-09)
DX: E11.51 Type 2 diabetes mellitus with diabetic peripheral angiopathy without gangrene (principal); L03.115 Cellulitis of right lower limb; J96.11 Chronic respiratory failure with hypoxia; I50.22 Chronic systolic (congestive) heart failure; I13.0 Hypertensive heart and chronic kidney disease with heart failure and stage 1 through stage 4 chronic kidney disease, or unspecified chronic kidney disease; I25.10 Atherosclerotic heart disease of native coronary artery without angina pectoris; F17.210 Nicotine dependence, cigarettes, uncomplicated; N40.0 Benign prostatic hyperplasia without lower urinary tract symptoms; E11.22 Type 2 diabetes mellitus with diabetic chronic kidney disease; N18.3 Chronic kidney disease, stage 3 (moderate); B37.2 Candidiasis of skin and nail; L89.152 Pressure ulcer of sacral region, stage 2; E78.5 Hyperlipidemia, unspecified; J44.9 Chronic obstructive pulmonary disease, unspecified; D75.89 Other specified diseases of blood and blood-forming organs; I25.5 Ischemic cardiomyopathy; I48.0 Paroxysmal atrial fibrillation; S81.801A Unspecified open wound, right lower leg, initial encounter; X58.XXXA Exposure to other specified factors, initial encounter; Z95.1 Presence of aortocoronary bypass graft; Z99.81 Dependence on supplemental oxygen; Z95.0 Presence of cardiac pacemaker; Z79.899 Other long term (current) drug therapy; Z79.82 Long term (current) use of aspirin; Z79.51 Long term (current) use of inhaled steroids
CPT/HCPCS: 36415; 36416; 75630; 75716; 80048; 80053; 83605; 83735; 83880; 85025; 85347; 86140; 87040; 93306; 93970; 94640; 96365; 99152; C1769; J0360; J1644; J2250; J3010; J3490; J7512; J7620; J7626; Q9967

== ENCOUNTER 2019-10-31 12:28 | Outpatient (CLI) | payer MEDICARE ==
--- NOTE | 2019-10-31 13:05 | RAD ---
EXAM: 3 views of the left foot HISTORY: Open wound of the toe with complication COMPARISON: 05/03/2017 FINDINGS: 3 views of the left foot shows no evidence of acute fracture or dislocation. There is stabl e osteopenia of the small toe metatarsal and proximal phalanx. Mild lateral soft tissue swelling is seen. No obvious focal erosions are seen. Diabetic vascular calcifications are seen. No degenerative changes are present. IMPRESSION: No evidence of acute osseous abnormality.
== END 2019-10-31 12:29 | disposition home or self-care (01) ==
LOC: RAD 12:28
PROVIDERS: ATTEND Nurse Practitioner Family
DX: S91.109D Unspecified open wound of unspecified toe(s) without damage to nail, subsequent encounter (principal)